=== PATIENT | male | born 1955 | race Caucasian/White ===

== ENCOUNTER 2024-11-23 12:51 | Emergency (ER) | payer BC ==
--- OUTSIDE RECORDS SUMMARY | 2024-11-23 12:55 | XMS REPORT | Continuity of Care Document ---
Author Name Unknown Address [address] [facility]. [address] Address [address] [facility]. 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 Role Phone IDRIS GOODRICH Attending Clinician Unavailable Leslie Attending Clinician Unavailable CHRISTY NOBLES Attending Clinician Unavailable Krystin Attending Clinician Unavailable FEDERICO FRAUSTO Attending Clinician Unavailable JULIET STERN Attending Clinician Unavailab Jolley Attending Clinician Unavailable BALJEET MANCUSO Attending Clinician Unavailable DIANDRA CERDA Attending Clinician Unavailable DELMY GARCIA Attending Clinician Ayala vailable Leslie Admitting Clinician Unavailable Krystin Admitting Clinician Unavailable Ivan Admitting Clinician Unavailable Payers Payer Name Policy Type Policy Number Effective Date Expirati on Date Source [place] [id number] 2021 00:00:00 [facility] 57 Problems Condition Name Condition Details Condition Category Status Onset Date Resolution Date Last Treatment Date Treating Clinician Comments Source Streptococ tony sore throat Streptococ tony Sore Throat Problem Active 2023-10 00:00: 00 [facility] Hyperlipid emia Hyperlipid emia Problem Active 2023-10 00:00: 00 [facility] Essential hypertensi on Essential Hypertensi on Problem Active 2023-10 00:00: 00 [facility] Acute pharyngiti s Acute Pharyngiti s Problem Active 2023-10 00:00: 00 [facility] Nasal congestion Nasal Congestion Problem Active 12-27 00:00: 00 [facility] COVID-19 Covid-19 Problem Active 3 00:00: 00 [facility] Rayray hematuria Rayray Hematuria Problem Active 18 00:00: 00 [facility] Acute bacterial bronchitis Acute Bacterial Bronchitis Problem Active 11-03 00:00: 00 [facility] Overweight Overweight Problem Active 11-03 00:00: 00 [facility] Allergies, Adverse Reactions, Alerts Allergy Name Allergy Type Status Severity Reaction(s) Onset Date Inactive Date Treating Clinician Comments Source Naproxen Allergy to substanc e Active Anaphylaxis [facility] Lipitor Allergy to substanc e Active [facility] Naprosyn Allergy to substanc e Active [facility] Social History Smoking Status Start Date Stop Date Source Never Smoker [facility] Former Smoker [facility] Medications Ordered Medication Name Filled Medication Name Start Date Stop Date Current Medication? Ordering Clinician Indication Dosage Frequency Signature (SIG) Comments Components Source aspirin 81 mg tablet,priscilla yed release Take 1 tablet every day by oral route. aspirin 81 mg tablet,priscilla yed release Take 1 tablet every day by oral route. No 1 Q1D aspirin 81 mg tablet,del ayed release Take 1 tablet every day by oral route. [facility] ezetimibe 10 mg tablet TAKE 1 TABLET BY MOUTH EVERY DAY ezetimibe 10 mg tablet TAKE 1 TABLET BY MOUTH EVERY DAY No ezetimibe 10 mg tablet TAKE 1 TABLET BY MOUTH EVERY DAY [facility] finasteride 5 mg tablet TAKE 1 TABLET BY MOUTH DAILY finasteride 5 mg tablet TAKE 1 TABLET BY MOUTH DAILY No finasterid e 5 mg tablet TAKE 1 TABLET BY MOUTH DAILY [facility] metoprolol succinate ER 50 mg tablet,exte nded release 24 hr TAKE 1 TABLET BY MOUTH DAILY metoprolol succinate ER 50 mg tablet,exte nded release 24 hr TAKE 1 TABLET BY MOUTH DAILY No metoprolol succinate ER 50 mg tablet,ext ended release 24 hr TAKE 1 TABLET BY MOUTH DAILY [facility] tamsulosin 0.4 mg capsule TAKE 1 CAPSULE BY MOUTH DAILY tamsulosin 0.4 mg capsule TAKE 1 CAPSULE BY MOUTH DAILY No tamsulosin 0.4 mg capsule TAKE 1 CAPSULE BY MOUTH DAILY [facility] azithromyci n 250 mg tablet TAKE 2 TABLETS (500 MG) BY ORAL ROUTE ONCE DAILY FOR 1 DAY THEN 1 TABLET (250 MG) BY ORAL ROUTE ONCE DAILY FOR 4 DAYS azithromyci n 250 mg tablet TAKE 2 TABLETS (500 MG) BY ORAL ROUTE ONCE DAILY FOR 1 DAY THEN 1 TABLET (250 MG) BY ORAL ROUTE ONCE DAILY FOR 4 DAYS No azithromyc in 250 mg tablet TAKE 2 TABLETS (500 MG) BY ORAL ROUTE ONCE DAILY FOR 1 DAY THEN 1 TABLET (250 MG) BY ORAL ROUTE ONCE DAILY FOR 4 DAYS [facility] Aspir-Low 81 mg tablet,priscilla yed release Take 1 tablet every day by oral route. Aspir-Low 81 mg tablet,priscilla yed release Take 1 tablet every day by oral route. No 1 Q1D Aspir-Low 81 mg tablet,del ayed release Take 1 tablet every day by oral route. [facility] ezetimibe 10 mg tablet TAKE 1 TABLET BY MOUTH EVERY DAY ezetimibe 10 mg tablet TAKE 1 TABLET BY MOUTH EVERY DAY No ezetimibe 10 mg tablet TAKE 1 TABLET BY MOUTH EVERY DAY [facility] metoprolol succinate ER 50 mg tablet,exte nded release 24 hr TAKE 1 TABLET BY MOUTH DAILY metoprolol succinate ER 50 mg tablet,exte nded release 24 hr TAKE 1 TABLET BY MOUTH DAILY No metoprolol succinate ER 50 mg tablet,ext ended release 24 hr TAKE 1 TABLET BY MOUTH DAILY [facility] Paxlovid 300 mg (150 mg x 2)-100 mg tablets in a dose pack TK 2 NIRMATRELVI R TS AND 1 RITONAVIR T TOGETHER PO BF 5 Paxlovid 300 mg (150 mg x 2)-100 mg tablets in a dose pack TK 2 NIRMATRELVI R TS AND 1 RITONAVIR T TOGETHER PO BF 5 No Paxlovid 300 mg (150 mg x 2)-100 mg tablets in a dose pack TK 2 NIRMATRELV IR TS AND 1 RITONAVIR T TOGETHER PO BF 5 [facility] dicyclomine 20 mg tablet Take 1 tablet 4 times a day by oral route as needed, for Abdominal cramping. dicyclomine 20 mg tablet Take 1 tablet 4 times a day by oral route as needed, for Abdominal cramping. No 1 QID dicyclomin e 20 mg tablet Take 1 tablet 4 times a day by oral route as needed, for Abdominal cramping. [facility] Immunizations Ordered Immunization Name Filled Immunization Name Date Status Comments Source Influenza vaccine, quadrivalent, adjuvanted Influenza vaccine, quadrivalent, adjuvanted Unknown Completed [facility] influenza, injectable, quadrivalent, preservative free influenza, injectable, quadrivalent, preservative free Unknown Completed [facility] Tdap Tdap Unknown Completed [facility] influenza, injectable, quadrivalent influenza, injectable, quadrivalent Unknown Completed [facility] COVID-19, mRNA, LNP-S, PF, 100 mcg/0.5 mL dose (Moderna) - ML COVID-19, mRNA, LNP-S, PF, 100 mcg/0.5 mL dose (Moderna) - ML Unknown Completed [facility] influenza, unspecified formulation influenza, unspecified formulation Unknown Completed [facility] Vital Signs Vital Name Observation Time Observation Value Comments S ource BP Systolic 2024-09-12 00:00:00 137 mm[Hg] Brian cama [facility] Height 2024-09-12 00:00:00 71 [in_i] [facility] BMI (Body Mass Index) 2024-09-12 00:00:00 27.6 kg/m2 [place] [facility] Body Weight 2024-09-12 00:00:00 3168 [oz_av] [facility] BP Diastolic 2024-09-12 00:00:00 89 mm[Hg] [facility] Weight 2024-09-10 00:00:00 3200 [oz_av] [facility] BMI (Body Mass Index) 2024-09-10 00:00:00 27.9 kg/m2 [place] [facility] BP Diastolic 2024-09-10 00:00:00 97 mm[Hg] [place] [facility] BP Systolic 2024-09-10 00:00:00 162 mm[Hg] [facility] Height 2024-09-10 00:00:00 71 [in_i] [place] [facility] Height 2024-05-05 00:00:00 69.2 [in_i] [facility] BP Diastolic 2024-05-05 00:00:00 88 mm[Hg] [facility] BP Systolic 2024-05-05 00:00:00 140 mm[Hg] [facility] BMI (Body Mass Index) 2024-05-05 00:00:00 28.5 kg/m2 [facility] Body Weight 2024-05-05 00:00:00 3104 [oz_av] [facility] BP Systolic 2024-02-24 00:00:00 155 mm[Hg] [facility] Height 2024-02-24 00:00:00 69.2 [in_i] [facility] BP Diastolic 2024-02-24 00:00:00 98 mm[Hg] [facility] Body Weight 2024-02-24 00:00:00 3104 [oz_av] [facility] BMI (Body Mass Index) 2024-02-24 00:00:00 28.5 kg/m2 [facility] Body Weight 2023-12-28 00:00:00 3152 [oz_av] [facility] BP Systolic 2023-12-28 00:00:00 135 mm[Hg] [facility] Height 2023-12-28 00:00:00 69.2 [in_i] [facility] BMI (Body Mass Index) 2023-12-28 00:00:00 28.9 kg/m2 [facility] BP Diastolic 2023-12-28 00:00:00 90 mm[Hg] [facility] BP Systolic 2023-07-22 00:00:00 139 mm[Hg] [facility] BMI (Body Mass Index) 2023-07-22 00:00:00 28.5 kg/m2 [facility] BP Diastolic 2023-07-22 00:00:00 88 mm[Hg] [facility] Height 2023-07-22 00:00:00 69.2 [in_i] [facility] Body Weight 2023-07-22 00:00:00 3104 [oz_av] [facility] BP Diastolic 2022-11-26 00:00:00 93 mm[Hg] [facility] Height 2022-11-26 00:00:00 69.2 [in_i] [facility] BMI (Body Mass Index) 2022-11-26 00:00:00 27.9 kg/m2 [facility] BP Systolic 2022-11-26 00:00:00 145 mm[Hg] [facility] Body Weight 2022-11-26 00:00:00 3040 [oz_av] [facility] BP Diastolic 2022-11-24 00:00:00 100 mm[Hg] [facility] Height 2022-11-24 00:00:00 69.2 [in_i] [facility] BMI (Body Mass Index) 2022-11-24 00:00:00 27.9 kg/m2 [facility] BP Systolic 2022-11-24 00:00:00 154 mm[Hg] [facility] Body Weight 2022-11-24 00:00:00 3040 [oz_av] [facility] BP Diastolic 2022-11-03 00:00:00 93 mm[Hg] [facility] Height 2022-11-03 00:00:00 69.2 [in_i] [facility] BMI (Body Mass Index) 2022-11-03 00:00:00 28 kg/m2 [facility] BP Systolic 2022-11-03 00:00:00 134 mm[Hg] [facility] Body Weight 2022-11-03 00:00:00 3047 [oz_av] [facility] Height 2022-10-17 00:00:00 69.2 [in_i] [facility] BP Diastolic 2022-08-27 00:00:00 97 mm[Hg] [facility] Height 2022-08-27 00:00:00 69.2 [in_i] [facility] BMI (Body Mass Index) 2022-08-27 00:00:00 28.9 kg/m2 [facility] BP Systolic 2022-08-27 00:00:00 147 mm[Hg] [facility] Body Weight 2022-08-27 00:00:00 3152 [oz_av] [facility] BP Systolic 2022-08-02 00:00:00 128 mm[Hg] [facility] Body Weight 2022-08-02 00:00:00 3184 [oz_av] [facility] BP Diastolic 2022-08-02 00:00:00 85 mm[Hg] [facility] Height 2022-08-02 00:00:00 71 [in_i] [facility] BMI (Body Mass Index) 2022-08-02 00:00:00 27.8 kg/m2 [facility] BP Diastolic 2021-08-24 00:00:00 89 mm[Hg] [facility] Height 2021-08-24 00:00:00 71 [in_i] [facility] BMI (Body Mass Index) 2021-08-24 00:00:00 26.2 kg/m2 [facility] BP Systolic 2021-08-24 00:00:00 143 mm[Hg] [facility] Body Weight 2021-08-24 00:00:00 3011 [oz_av] [facility] BP Diastolic 2021-07-31 00:00:00 85 mm[Hg] [facility] Height 2021-07-31 00:00:00 71 [in_i] [facility] BMI (Body Mass Index) 2021-07-31 00:00:00 26.2 kg/m2 [facility] BP Systolic 2021-07-31 00:00:00 121 mm[Hg] [facility] Body Weight 2021-07-31 00:00:00 3000 [oz_av] [facility] BP Diastolic 2020-12-16 00:00:00 86 mm[Hg] [facility] Height 2020-12-16 00:00:00 71 [in_i] [facility] BMI (Body Mass Index) 2020-12-16 00:00:00 26.4 kg/m2 [facility] BP Systolic 2020-12-16 00:00:00 131 mm[Hg] [facility] Body Weight 2020-12-16 00:00:00 3025.6 [oz_av] [facility] BP Diastolic 2019-12-16 00:00:00 82 mm[Hg] [facility] Height 2019-12-16 00:00:00 71 [in_i] [facility] BMI (Body Mass Index) 2019-12-16 00:00:00 28 kg/m2 [facility] BP Systolic 2019-12-16 00:00:00 133 mm[Hg] [facility] Body Weight 2019-12-16 00:00:00 3207 [oz_av] [facility] Procedures Procedure Date / Time Performed Performing Clinicia n Source XR, chest, 2 view 2023-07-22 00:00:00 [facility] Colonoscopy Thru Stoma Spx 2008-10-07 00:00:00 [facility] Encounters Start Date/Time End Date/Time Encounter Type Admission Type Attending [facility] Care Facility Care Department Encounter ID Source 2024-09-12 00:00:00 2024-09-12 00:00:00 Alisson Sotelo, UTILIZATION SPECIALIST: Herman Broderick, [place] [address] , [facility]. [facility] Primary Expansion [phone] [facility] 2024-09-10 00:00:00 2024-09-10 00:00:00 Jaqueline Bundy, UTILIZATION SPECIALIST: [place] [address] , Ph. [facility] Expansion [id number] [facility] 2024-05-05 00:00:00 2024-05-05 00:00:00 Christy Nobles, UTILIZATION SPECIALIST: [address], [address], [place] [address] , Ph. [facility] [id number] [facility] 2024-02-24 00:00:00 2024-02-24 00:00:00 Christy Nobles, UTILIZATION SPECIALIST: [address], [address], [place] [address] , Ph. [facility] [phone]- [phone] [facility] 2024-01-03 08:01:00 2024-01-03 08:01:00 Outpatient IDRIS RANDLE [facility] [id number] [facility] 2023-12-28 00:00:00 2023-12-28 00:00:00 Tameka Salguero, UTILIZATION SPECIALIST: [address], [address], [place] [address] , Ph. Jose M_Ricardo [facility] 323 [facility] 2023-08-14 08:15:00 2023-08-14 08:15:00 Outpatient CHRISTY CARRASQUILLO [facility] [id number] [facility] 2023-07-22 00:00:00 2023-07-22 00:00:00 [id number] [facility] 2023-07-22 00:00:00 2023-07-22 00:00:00 [facility] [id number] [facility] 2023-07-22 00:00:00 2023-07-22 00:00:00 Christy Nobles, UTILIZATION SPECIALIST: [address], [address], [place] [address] , Ph. [facility] [id number] [facility] 2023-01-30 14:12:00 2023-01-30 14:12:00 Outpatient NICCI FEDERICO FRAUSTO [facility] [id number] [facility] 2022-12-04 08:14:00 2022-12-04 08:14:00 Outpatient NICCI NOBLESCHRISTY [facility] [id number] [facility] 2022-11-26 00:00:00 2022-11-26 00:00:00 Outpatient Evans_S [facility] [id number] [facility] 2022-11-26 00:00:00 2022-11-26 00:00:00 Christy Nobles, UTILIZATION SPECIALIST: [address], [place] [address] , Ph. [facility] [id number] [facility] 2022-11-24 10:27:00 2022-11-24 10:27:00 Outpatient JULIET ROMO [facility] [id number] [facility] 2022-11-24 00:00:00 2022-11-24 00:00:00 Outpatient Evans_S [facility]G [facility] [id number] [facility] 2022-11-24 00:00:00 2022-11-24 00:00:00 HYUN AdrianC: [address], [place] [address] , Ph. [facility] [id number] [facility] 2022-11-23 00:00:00 2022-11-23 00:00:00 Outpatient Shield [facility] [id number] [facility] 2022-11-03 00:00:00 2022-11-03 00:00:00 Outpatient Shield [facility] [id number] [facility] 2022-11-03 00:00:00 2022-11-03 00:00:00 Outpatient Shield [facility] [id number] [facility] 2022-11-03 00:00:00 2022-11-03 00:00:00 Tameka Salguero, UTILIZATION SPECIALIST: [address] [address] , Ph. [facility] [id number] [facility] 2022-10-17 00:00:00 2022-10-17 00:00:00 Outpatient Shield [facility] [id number] [facility] 2022-10-17 00:00:00 2022-10-17 00:00:00 Outpatient Shield [facility]G [facility] [id number] [facility] 2022-10-17 00:00:00 2022-10-17 00:00:00 Christy Nobles, UTILIZATION SPECIALIST: [address] [address] , Ph. [facility] [id number] [facility] 2022-09-18 14:20:00 2022-09-18 14:20:00 Outpatient CHRISTY CARRASQUILLO [facility] [id number] [facility] 2022-08-27 14:44:00 2022-08-27 14:44:00 Outpatient CHRISTY CARRASQUILLO [facility] [id number] [facility] 2022-08-27 00:00:00 2022-08-27 00:00:00 Outpatient Shield [facility] MM[facility] [id number] [facility] 2022-08-27 00:00:00 2022-08-27 00:00:00 Outpatient Shield [facility] [id number] [facility] 2022-08-27 00:00:00 2022-08-27 00:00:00 Christy Nobles, UTILIZATION SPECIALIST: [address], [place] [address] , Ph. [facility] [id number] [facility] 2022-08-02 00:00:00 2022-08-02 00:00:00 Outpatient Shield [facility] MMG [id number] [facility] 2022-08-02 00:00:00 2022-08-02 00:00:00 Christy Nobles, UTILIZATION SPECIALIST: [address], [place] [address] , Ph. [facility] [id number] [facility] 2021-08-24 00:00:00 2021-08-24 00:00:00 Outpatient Shield [facility] [id number] [facility] 2021-08-24 00:00:00 2021-08-24 00:00:00 Christy Nobles, UTILIZATION SPECIALIST: [address], [place] [address] , Ph. [facility] [id number] [facility] 2021-08-23 05:49:00 2021-08-23 05:49:00 Outpatient Shield [facility] [id number] [facility] 2021-08-04 06:11:00 2021-08-04 06:11:00 Outpatient Hawkins_M [facility] [id number] [facility] 2021-07-31 10:57:00 2021-07-31 10:57:00 Outpatient NICCI CHRISTY NOBLES [facility] [id number] [facility] 2021-07-31 07:05:00 2021-07-31 07:05:00 Outpatient Hawkins_M [facility] [id number] [facility] 2021-07-31 00:00:00 2021-07-31 00:00:00 Christy Nobles, UTILIZATION SPECIALIST: [address], [place] [address] , Ph. [facility] [id number] [facility] 2020-12-30 15:42:00 2020-12-30 15:42:00 Outpatient IDRIS RANDLE [facility] [id number] [facility] 2020-12-22 08:05:00 2020-12-22 08:05:00 Outpatient IDRIS RANDLE [facility] [id number] [facility] 2020-12-16 10:38:00 2020-12-16 10:38:00 Outpatient Hawkins_M MMG MM [id number] [facility] 2020-12-16 10:38:00 2020-12-16 10:38:00 Outpatient Hawkins_M MMG MM [id number] [facility] 2020-12-16 00:00:00 2020-12-16 00:00:00 Tameka Salguero, UTILIZATION SPECIALIST: [address], [place] [address] , Ph. [facility] [id number] [facility] 2020-12-15 02:13:00 2020-12-15 02:13:00 Outpatient Hawkins_M MMG MM[facility] [id number] [facility] 2020-08-24 02:28:00 2020-08-24 02:28:00 Outpatient Shield [facility] [id number] [facility] 2020-07-04 08:03:00 2020-07-04 08:03:00 Outpatient IDRIS RANDLE [facility] [id number] [facility] 2019-12-16 09:24:00 2019-12-16 09:24:00 Outpatient Shield [facility] [id number] [facility] 2019-12-16 00:00:00 2019-12-16 00:00:00 Christy Nobles, UTILIZATION SPECIALIST: [address] [facility] [address] [address] , Ph. [facility] [place] [facility] [id number] [facility] 2018-09-09 11:50:00 2018-09-09 11:50:00 Outpatient CHRISTY CARRASQUILLO [facility] [id number] [facility] 2014-05-12 09:25:00 2014-05-12 09:25:00 Outpatient IDRIS RANDLE [facility] [id number] [facility] 2013-11-10 11:46:00 2013-11-10 11:46:00 Outpatient BALJEET CR [facility] [id number] [facility] 2011-09-06 08:01:00 2011-09-06 08:01:00 Outpatient IDRIS RANDLE [facility] [id number] [facility] 2011-08-10 07:31:00 2011-08-10 07:31:00 Outpatient IDRIS RANDLE [facility] [id number] [facility] 2009-08-12 07:27:00 2009-08-12 07:27:00 Outpatient DIANDRA LIMON [facility] [id number] [facility] 2009-03-08 08:04:00 2009-03-08 08:04:00 Outpatient IDRIS RANDLE [facility] [id number] [facility] 2007-07-07 08:01:00 2007-07-07 08:01:00 Outpatient IDRIS RANDLE [facility] [id number] [facility] 2003-08-24 08:16:00 2003-08-24 08:16:00 Outpatient IDRIS RANDLE [facility] [id number] [facility] 2001-01-14 03:43:00 2001-01-14 06:15:00 Emergency ER DELMY GARCIA [facility] [id number] [facility] Results Test Description Test Time Test Comments Results Result Co mments Source [facility] macro (dipstick) panel - [id number] 15:06:00* Test Item Value Reference Range Interpretation Comme nts Leukocytes (test code = Leukocytes) Negative Nitrite (test code = Nitrite) negative Urobilinogen (test code = Urobilinogen) 1 Protein (test code = Protein) Negative pH (test code = pH) 7.0 Blood (test code = Blood) Negative Specific Alma (test code = Specific [place]ma) 1.020 Ketone (test code = Ketone) Negative Bilirubin (test code = Bilirubin) Negative Glucose (test code = Glucose) Negative Appearance (test code = Appearance) Turbid Color (test code = Color) Dark Yellow [facility] A and B and SARS-CoV+SARS-CoV-2 (COVID- 19) Ag panel - Upper respiratory specimen byRapid [id number] 13:38:02 * Test Item Value Reference Range Interpretation Comme nts RAPID SARS COV (test code = RAPID SARS COV) positive RAPID FLU A (test code = RAP ID FLU A) negative RAPID FLU B (test code = RAP ID FLU B) negative [facility] pres id [id number] 10:58:00* Test Item Value Reference Range Interpretation Comme nts culture,urine (test code = culture,urine) specimen has been received in lab and IS in progress. [facility]portUrinalysis macro (dipstick) panel - [id number] 09:47:00* Test Item Value Reference Range Interpretation Comme nts Leukocytes (test code = Leukocytes) Negative Nitrite (test code = Nitrite) negative Urobilinogen (test code = Urobilinogen) .2 Protein (test code = Protein) Negative pH (test code = pH) 6.5 Blood (test code = Blood) Large Specific [place] (test code = Specific [place]) 1.020 Ketone (test code = Ketone) Negative Bilirubin (test code = Bilirubin) Negative Glucose (test code = Glucose) Negative Appearance (test code = Appearance) Cloudy Color (test code = Color) Dark Yellow [facility]Non[facility] colorectal cancer DNA and occult blood screening [Presence] in [id number] 19:00:00* Test Item Value Reference Range Interpretation Comme nts cologuard result reportable (test code = cologuard result reportable) negative negative [facility] metabolic 2000 panel - Serum or [id number] 15:59:00* Test Item Value Reference Range Interpretation Comme nts glucose (test code = glucose) 101 mg/dL 82-115 blood urea nitrogen (test co de = blood urea nitrogen) 14 mg/dL 8-23 osmolality calculated,serum (test code = osmolality calculated,serum) 276 mOsm/kg 280-300 L creatinine (test code = creatinine) 1.03 mg/dL 0.70-1.20 glomerular filtration rate ( test code = glomerular filtration rate) > 60.00 BUN/creatinine ratio (test c ode = BUN/creatinine ratio) 13.6 12.0-20.0 sodium level (test code = so dium level) 138 mmol/L 135-145 potassium level (test code = potassium level) 4.3 mmol/L 3.5-5.2 chloride level (test code = chloride level) 101 mmol/L 98-108 CO2 (test code = CO2) 28 mmol/L 21-32 anion gap (test code = anion gap) 13.3 mEq/L 12.0-20.0 calcium level (test code = calcium level) 9.3 mg/dL 8.8-10.2 [facility]hepatitis C virus [id number] 08:15:00* Test Item Value Reference Range Interpretation Comme nts hepatitis C virus antibody (test code = hepatitis C virus antibody) 0.2 s/co ratio 0.0-0.9 [facility]thyroid stimulating hormone [id number] 17:39:00* Test Item Value Reference Range Interpretation Comme nts thyroid stimulating hormone L (test code = thyroid stimulating hormone L) 1.21 uIU/mL 0.36-3.74 [facility]total prostate [id number] 17:28:00* Test Item Value Reference Range Interpretation Comme nts total prostate screening (te st code = total prostate screening) 3.35 NG/mL 0.0-4.00 [facility]lipid [id number] 17:23:00* Test Item Value Reference Range Interpretation Comme nts cholesterol level (test code = cholesterol level) 213 mg/dL 150-200 H triglycerides level (test co de = triglycerides level) 160 mg/dL <150 H HDL cholesterol (test code = HDL cholesterol) 46 mg/dL >55 L Cholesterol in LDL [Mass/vol ume] in Serum or Plasma (test code = 2089-1) 146 mg/dL <100 H cholesterol risk ratio (test code = cholesterol risk ratio) 4.630 [facility]hemoglobin [id number] 17:18:00* Test Item Value Reference Range Interpretation Comme nts Hemoglobin A1c/Hemoglobin.to [place] in Blood (test code = 4548-4) 6.0 % 4.0-6.0 [id number] 17:09:00* Test Item Value Reference Range Interpretation Comme nts color, urine (test code = color, urine) light yellow appearance, urine (test code = appearance, urine) clear clear urine glucose (test code = urine glucose) negative negative bilirubin, urine (test code = bilirubin, urine) negative negative ketone, urine (test code = ketone, urine) negative negative specific gravity,urine (test code = specific gravity,urine) 1.018 1.003-1.030 blood urine (test code = blo od urine) negative negative pH,urine (test code = pH,urine) 6.000 5-9 protein urine (UA) (test cod e = protein urine (UA)) negative negative urobilinogen, urine (test co de = urobilinogen, urine) normal 0.2-1.0 nitrate, urine (test code = nitrate, urine) negative negative urine leukocyte esterase (te st code = urine leukocyte esterase) negative negative RBC, urine (test code = RBC, urine) 1-5 0-5 WBC, urine (test code = WBC, urine) <1 0-5 epithelial cell (test code = epithelial cell) <1 0-5 bacteria, urine (test code = bacteria, urine) none detected none detect casts,urine (test code = casts,urine) none detected none detect urine culture added? (test c ode = urine culture added?) no [facility]portPSA, serum or [id number] 00:00:00* Test Item Value Reference Range Interpretation Comme nts PSA, serum or plasma (test c ode = PSA, serum or plasma) 2.79 [facility]portHemoglobin A1c [Mass/volume] in [id number] 00:00:00 * Test Item Value Reference Range Interpretation Comme nts Hemoglobin A1c [Mass/volume] in Blood (test code = 40703-4) 5.7 % 4.0-6.0 [facility]Comprehensive metabolic 2000 panel - Serum or Plasma 2021-07-31 00:00:00* Test Item Value Reference Range Interpretation Comme nts Glucose [Mass/volume] in Ser um or Plasma (test code = 2345-7) 107 mg/dL 82-115 Urea nitrogen [Mass/volume] in Serum or Plasma (test code = 3094-0) 19 mg/dL 8-23 osmolality calculated,serum (test code = osmolality calculated,serum) 282 mOsm/kg 280-300 creatinine (test code = creatinine) 1.0 mg/dL 0.70-1.20 glomerular filtration rate ( test code = glomerular filtration rate) >60.00 Urea nitrogen/Creatinine [Ma ss Ratio] in Serum or Plasma (test code = 3097-3) 19.0 12-20 sodium level (test code = so dium level) 140 mmol/L 135-145 potassium level (test code = potassium level) 4.4 mmol/L 3.5-5.2 chloride level (test code = chloride level) 102 mmol/L 98-108 CO2 (test code = CO2) 27 mmol/L 21-32 anion gap (test code = anion gap) 15.4 mEq/L 12-20 calcium level (test code = calcium level) 9.0 mg/dL 8.8-10.2 total protein (test code = t otal protein) 6.9 g/dL 6.6-8.7 albumin (test code = albumin) 4.2 g/dL 3.5-5.2 globulin (test code = globulin) 2.7 gm/dL A/G ratio (test code = A/G ratio) 1.6 >1.0 bilirubin,total (test code = bilirubin,total) 0.7 mg/dL 0.0-1.2 AST/SGOT (test code = AST/SGOT) 27 U/L 15-40 Alanine aminotransferase [Enzymatic activity/volume] in Serum or Plasma (test code = 1742-6) 35 U/L 0-41 Alkaline phosphatase [Enzyma tic activity/volume] in Serum or Plasma (test code = 6768-6) 72 U/L 40-130 [facility]
--- NOTE | 2024-11-23 13:47 | RAD REPORT ---
EXAMINATION: CT ABDOMEN AND PELVIS WITH CONTRAST CLINICAL INDICATION: Hematuria TECHNIQUE: CT abdomen and pelvis was performed, after the administration of 100 cc Isovue-300.. [place] and coronal reconstructions were obtained. One or more of the following dose reduction techniques were used: Automated exposure control, adjustment of the mA and kV according to patient si ze, and iterative reconstruction. Unless otherwise specified, incidental findings do not require dedicated imaging follow-up. [id number]. Oral contrast was not given which limits evaluation of bowel and appendix. COMPARISON: .None FINDINGS: 2.7 cm hepatic cyst. Tiny mass right kidney too small to characterize but probably a cyst. Tiny calculus right kidney. No hydronephrosis. Mild apical thinning left kidney. No mass. No hydronephrosis. Prostate gland mildly enlarged calcification. It abuts the base of the bladder. The spleen, pancreas and adrenals are unremarkable. Normal appendix. Spondylosis distal lumbar spine.. Very small bladder diverticulum. Small to moderate bilateral inguinal hernias containing fat Diverticula stem from colon without visualization of diverticulitis Tiny umbilical hernia : IMPRESSION: Tiny nonobstructing right renal calculus
[2024-11-23] MEDS ORDERED: NA CHLORIDE 0.9% 1,000 ML ONE (13:53)
[2024-11-23 13:54] LABS: Absolute Eosinophils 0.1 K/uL (0-0.5); Absolute Lymphocytes (CBC) 2.4 K/uL (0.7-4.9); Absolute Monocytes 0.6 K/uL (0.1-1.3); Absolute Neutrophil 5.6 K/uL (1.8-8.0); Basophils % 0.4 % (0-1.3); Eosinophils % 1.4 % (0-4.4); Hematocrit 43.3 % (39.6-49.0); Lymphocytes % 27.4 % (15.3-44.8); MCH 30.7 pg (27.0-35.0); MCHC 34.6 g/dL (32.0-36.0); MCV 88.6 fL (80-100); Monocytes % 6.8 % (3.3-12.3); Nucleated Red Blood Cells % 0.1 % (0-0); Platelets 197 thou/uL (152-406); RBC Red Blood Cell Count 4.89 M/uL (4.33-5.43); Red Cell Distribution Width 13.7 % (12.1-15.2)
[2024-11-23 14:07] LABS: Albumin 3.6 g/dL (3.4-5.0); Albumin/Globulin Ratio 1.1 (1.1-1.8); Anion Gap 4.9 mEq/L (5.0-15.0); Bilirubin Total 0.7 mg/dL (0.2-1.0); Globulin 3.2 g/dL (2.3-3.5); Potassium 3.9 mEq/L (3.5-5.1); Protein, Total 6.8 g/dL (6.4-8.2)
[2024-11-23 14:19] LABS: Sqamous Epithelial None Seen /HPF (None Seen); Urine Bacteria None Seen /HPF (<20); Urine Culture Reflex Order NOT NEEDED; Urine Micro Reflex YN NO BILL MICROSCOPIC; Urine RBC >50 /HPF (None Seen)
--- NOTE | 2024-11-23 15:54 | EDPHYS ---
Physician Documentation [facility] Name: Wanda Elizabeth Age: 69 yrs Sex: Male : 1955 Arrival Date: 11/23/2024 Time: 12:51 Bed 18 Private MD: ED Physician Caryl Ramirez HPI: 11/23 13:36 This 69 yrs old Male presents to ER via Ambulatory with complaints of Urinary Problem. kb 13:37 Pt is a 69 year old male who presents for hematuria that started yesterday and has kb gotten worse. States he has had this happen before, was seen by urologist and a cystoscopy was done but didn't show anything. Denies any pain, fever, dysuria. . Historical: - Allergies: 13:07 Naprosyn; ko1 - PMHx: 13:07 History of urinary tract infection; ko1 - Immunization history:: Adult Immunizations unknown. - Infectious Disease History:: Denies. - Social history:: Smoking status: Patient/guardian denies using tobacco, but has a distant history of tobacco abuse. ROS: 13:36 Constitutional: As per HPI kb Exam: 13:36 Constitutional: This is a well developed, well nourished patient who is awake, alert, kb and in no acute distress. Head/Face: Normocephalic, atraumatic. ENT: Moist Mucous membranes Cardiovascular: Regular rate Respiratory: Respirations even and unlabored. No increased work of breathing. Talking in full sentences Abdomen/GI: Soft, non-tender. No distention Skin: Warm, dry with normal turgor. Normal color. MS/ Extremity: Pulses equal, no cyanosis. Neurovascular intact. Full, normal range of motion. Neuro: Awake and alert, GCS 15, oriented to person, place, time, and situation. Vital Signs: 13:04 BP 166 / 102; Pulse 90; Resp 16; Temp 97; Pulse Ox 100% ; ko1 14:51 BP 155 / 90; Pulse 70; Resp 16; Pulse Ox 96% on R/A; Pain 1/10; ll1 14:51 Pain Scale: Adult ll1 MDM: 12:53 Medical Screening Exam initiated kb 15:52 Differential diagnosis: UTI, urinary retention, prostatitis, urethritis. Data reviewed: kb vital signs, nurses notes. Historians other than the Patient: Spouse/Significant Other: . Counseling: I had a detailed discussion with the patient and/or guardian regarding the historical points, exam findings, and any diagnostic results supporting the discharge/admit diagnosis, lab results, radiology results, the need for outpatient follow up, a urologist, to return to the emergency department if symptoms worsen or persist or if there are any questions or concerns that arise at home. ED course: Discussed pickens catheter and bladder irrigation if urine grossly bloody with pt and spouse. Pt urinated clear, light tea colored urine. States he has no difficulty urinating. Used shared decision making and elected not to insert pickens at this time. Pt educated on strict return precautions. Pt will follow up with Dr Tejada. 11/23 13:07 Order name: CBC with Diff; Complete Time: 13:56 kb 11/23 13:07 Order name: CMP; Complete Time: 14:08 kb 11/23 14:00 Order name: CREATININE WHOLE BLOOD; Complete Time: 14:08 EDMS 11/23 14:06 Order name: Urine Microscopic Only; Complete Time: 14:19 EDMS 11/23 13:07 Order name: CT Abd/Pelvis - IV Contrast Only; Complete Time: 13:51 kb 11/23 13:07 Order name: IV Saline Lock; Complete Time: 13:52 kb 11/23 13:07 Order name: Labs collected and sent; Complete Time: 13:52 kb Administered Medications: 14:03 Drug: NS 0.9% IV 1000 ml IV at 1 bolus Per protocol; to be given as a bolus over 60 ss minutes Route: IV; Rate: 1 bolus; Site: left antecubital; 16:06 Follow up: Response: No adverse reaction; IV Status: Completed infusion; IV Intake: ll1 1000ml Disposition: 19:49 Co-signature as Attending Physician, Caryl Ramirez MD I agree with the assessment and gb1 plan of care. I reviewed the patient's care provided by the Advanced Practice Provider and agree with the diagnosis and treatment plan. Disposition Summary: 11/23/24 15:54 Discharge Ordered Notes: Location: Home kb Condition: Stable kb Diagnosis - Hematuria, unspecified kb Followup: kb - With: Emergency Department - When: As needed - Reason: Worsening of condition Followup: kb - With: Private Physician - When: 2 - 3 days - Reason: Recheck today's complaints, Continuance of care, Re-evaluation by your physician Discharge Instructions: - Discharge Summary Sheet kb - Hematuria, Adult kb Forms: - Medication Reconciliation Form kb - Antibiotic Education kb - Prescription Opioid Use kb - Patient Portal Instructions kb - Leadership Thank You Letter kb Signatures: Dispatcher [employer] EDMS DallinNuris, MIDDLEWARE ADMINISTRATOR-C MIDDLEWARE ADMINISTRATOR-Amanda Carney, RN RN ss Kath Lawson RN RN ko1 Caryl Ramirez MD MD gb1 Phi Wright RN ll1 Corrections: (The following items were deleted from the chart) 14:06 13:07 Urinalysis+U.LAB.BRZ ordered. EDKY EDKY
--- NOTE | 2024-11-23 15:54 | ER ---
Nurse's Notes [facility] Name: Wanda Elizabeth Age: 69 yrs Sex: Male : 1955 Arrival Date: 11/23/2024 Time: 12:51 Bed 18 Private MD: Diagnosis: Hematuria, unspecified Presentation: 11/23 13:04 Chief complaint: Patient states: blood in urine started yesterday, worse today. ko1 Coronavirus screen: At this time, the client does not indicate any symptoms associated with coronavirus-19. Ebola Screen: No symptoms or risks identified at this time. Initial Sepsis Screen: Does the patient meet any 2 criteria? No. Patient's initial sepsis screen is negative. Does the patient have a suspected source of infection? No. Patient's initial sepsis screen is negative. Risk Assessment: Do you want to hurt yourself or someone else? Patient reports no desire to harm self or others. Onset of symptoms is unknown. 13:04 Method Of Arrival: Ambulatory ko1 13:04 Acuity: RACHANA 3 ko1 Triage Assessment: 13:07 General: Appears in no apparent distress. Behavior is calm, cooperative, appropriate ko1 for age. Pain: Denies pain. Historical: - Allergies: 13:07 Naprosyn; ko1 - PMHx: 13:07 History of urinary tract infection; ko1 - Immunization history:: Adult Immunizations unknown. - Infectious Disease History:: Denies. - Social history:: Smoking status: Patient/guardian denies using tobacco, but has a distant history of tobacco abuse. Screenin:51 [facility] ED Fall Risk Assessment (Adult) History of falling in the last 3 months, ll1 including since admission No falls in past 3 months (0 pts) Confusion or Disorientation No (0 pts) Intoxicated or Sedated No (0 pts) Impaired Gait No (0 pts) Mobility Assist Device Used No (0 pt) Altered Elimination No (0 pt) Score/Fall Risk Level 0 - 2 = Low Risk Maintained a safe environment, Hourly rounding (assess needs \T\ fall precautionary measures) done. Abuse screen: Denies threats or abuse. Nutritional screening: No deficits noted. Tuberculosis screening: No symptoms or risk factors identified. Assessment: 14:51 General: Appears in no apparent distress. Behavior is calm, cooperative, appropriate ll1 for age. Pain: Denies pain. : Reports blood in urine. 16:06 Reassessment: No changes from previously documented assessment. Patient and/or family ll1 updated on plan of care and expected duration. Pain level reassessed. Patient is alert, oriented x 3, equal unlabored respirations, skin warm/dry/pink. Patient states symptoms have improved. Vital Signs: 13:04 BP 166 / 102; Pulse 90; Resp 16; Temp 97; Pulse Ox 100% ; ko1 14:51 BP 155 / 90; Pulse 70; Resp 16; Pulse Ox 96% on R/A; Pain 1/10; ll1 14:51 Pain Scale: Adult ll1 ED Course: 12:53 Patient arrived in ED. mr 12:53 Nuris Zamarripa, GWEN [facility]. kb 12:53 Caryl Ramirez MD is Attending Physician. kb 13:07 Triage completed. ko1 13:07 Arm band placed on right wrist. Patient placed in waiting room, Patient notified of ko1 wait time. 13:34 CT Abd/Pelvis - IV Contrast Only In Process Unspecified. EDMS 13:52 Inserted saline lock: 22 gauge in left antecubital area, using aseptic technique. ss ,using aseptic technique. Insertion by Adriana, FREDERICK Blood collected. Flushed with 10 mL NS. 13:54 CMP Sent. ss 13:54 CBC with Diff Sent. ss 14:52 Patient has correct armband on for positive identification. Bed in low position. ll1 Provided Education on: ER procedures and process. Client placed on continuous cardiac and pulse oximetry monitoring. NIBP monitoring applied. 16:06 Phi Wright, RN is Primary Nurse. ll1 16:06 No provider procedures requiring assistance completed. IV discontinued, intact, ll1 bleeding controlled, No redness/swelling at site. Pressure dressing applied. Administered Medications: 14:03 Drug: NS 0.9% IV 1000 ml IV at 1 bolus Per protocol; to be given as a bolus over 60 ss minutes Route: IV; Rate: 1 bolus; Site: left antecubital; 16:06 Follow up: Response: No adverse reaction; IV Status: Completed infusion; IV Intake: ll1 1000ml Medication: 14:52 VIS not applicable for this client. ll1 Intake: 16:06 IV: 1000ml; Total: 1000ml. ll1 Outcome: 15:54 Discharge ordered by . kb 16:06 Discharged to home ambulatory, ll1 16:06 Condition: stable 16:06 Discharge instructions given to patient, Instructed on discharge instructions, follow up and referral plans. Demonstrated understanding of instructions, follow-up care, 16:07 Patient left the ED. ll1 Signatures: Dispatcher [employer] EDMS Nuris Zamarripa, COMMUNITY ORGANIZATION WORKER-C COMMUNITY ORGANIZATION WORKER-Ckb Vazquez, Alisson, Reg Reg mr Amanda Bains, RN RN ss Phi Wright RN RN ll1 Kath Lawson RN RN ko1 Corrections: (The following items were deleted from the chart) 14:06 13:54 Urinalysis+U.LAB.BRZ drawn and sent. [place]
[2024-11-23 16:12] VITALS: TEMP 97
[2024-11-23 16:14] VITALS: BP 155/90; O2SAT 96
== END 2024-11-23 16:07 | disposition home or self-care (01) ==
LOC: ER 12:51
DX: R31.9 Hematuria, unspecified (principal)
CPT/HCPCS: 96361; 85025; 36415; 82565; 81015; 80053; 74177; 96360; 99284; Q9967; J7030

== ENCOUNTER 2025-01-05 11:18 | Day surgery (SDC) | payer OTHER, BC ==
[2024-12-30 10:27] LABS: Absolute Eosinophils 0.1 K/uL (0-0.5); Absolute Lymphocytes (CBC) 2.1 K/uL (0.7-4.9); Absolute Monocytes 0.5 K/uL (0.1-1.3); Absolute Neutrophil 4.2 K/uL (1.8-8.0); Basophils % 0.4 % (0-1.3); Eosinophils % 2.1 % (0-4.4); Hematocrit 45.1 % (39.6-49.0); Hemoglobin 15.2 g/dL (13.6-17.9); Lymphocytes % 29.8 % (15.3-44.8); MCH 30.7 pg (27.0-35.0); MCHC 33.7 g/dL (32.0-36.0); MPV 8.6 fL (7.6-11.3); Monocytes % 7.3 % (3.3-12.3); Neutrophils % 60.4 % (41.7-73.7); Nucleated Red Blood Cells % 0.3 % (0-0); Platelets 189 thou/uL (152-406); RBC Red Blood Cell Count 4.96 M/uL (4.33-5.43); Red Cell Distribution Width 13.6 % (12.1-15.2)
[2024-12-30 10:30] LABS: PT Prothrombin Time 10.9 SECONDS (10-13.0); Protime INR 0.95
[2024-12-30 11:18] LABS: Anion Gap 7.3 mEq/L (5.0-15.0); Potassium 4.3 mEq/L (3.5-5.1)
--- NOTE | 2024-12-30 11:45 | RAD REPORT ---
EXAMINATION: TWO VIEW CHEST XR CLINICAL INDICATION: Pre-op pending surgery TECHNIQUE: 2 views of the chest was performed. COMPARISON: No prior exam. FINDINGS: There is mild linear atelectasis in both lung bases. Lungs otherwise clear. The heart is upper limit of normal in size. No displaced fractures evident.
--- NOTE | 2024-12-31 08:38 | EKG ---
Test Date: 2024-12-30 Test Time: 09:45:01 Letter Carrier: TATI MEASUREMENT RESULTS: Intervals: Rate: 60 MD: 148 QRSD: 82 QT: 402 QTc: 402 [place]: P: 49 MD: 148 QRS: 4 T: 21 INTERPRETIVE STATEMENTS: Normal sinus rhythm Possible Left atrial enlargement Borderline ECG No previous ECG available for comparison Electronically Signed On 12-31-24 08:35:51 CDT by Stan Tovar
[2025-01-05] MEDS: Ringers Lactate 1,000 ML IV ONE ×2 (11:47→17:35)
[2025-01-05] MEDS ORDERED: PHENAZOPYRIDINE 100MG TAB PO ONE ×2 (14:19→20:03)
[2025-01-05] MEDS ORDERED: HYDROCODONE/APAP 5/325 MG TAB PO PRN (14:19)
[2025-01-05] MEDS ORDERED: propofoL 200 MG/20 ML VIAL IV ONE (16:36)
[2025-01-05] MEDS ORDERED: FENTANYL CITR 100 MCG/2 ML ONE (16:36)
[2025-01-05] MEDS ORDERED: LIDOCAINE 1% MPF 5 ML VIAL ONE (16:36)
[2025-01-05] MEDS ORDERED: ONDANSETRON 4 MG/2 ML VIAL ONE (16:36)
[2025-01-05] MEDS ORDERED: MIDAZOLAM HCL 2 MG/2 ML INJ ONE (16:36)
[2025-01-05] MEDS: CEFAZOLIN SODIUM 2 GM/VIAL ONE (16:55)
[2025-01-05] MEDS ORDERED: MORPHINE 10 MG/ML VIAL ONE (17:42)
[2025-01-05] MEDS ORDERED: dexAMETHasone 10 MG/ML VIAL ONE (17:46)
[2025-01-05] MEDS: MEPERIDINE HCL 25 MG/ML SYR ONE (18:53)
--- NOTE | 2025-01-05 19:09 | RAD REPORT ---
EXAM: Fluoroscopy use, Urethrocystogrphy Retrograde HISTORY: CYSTO RETROGRADES COMPARISON: None FINDINGS: A total of 36 images were sent to PACS, during a fluoroscopically guided bilateral ureteral stent placement. No radiologist was involved in protocoling or performance of the study, and no radiologist was present for the duration of the procedure. No interpretation of the saved images will be provided. Total fluoroscopy time: 1:47. IMPRESSION: Documentation of fluoroscopy use as above.
[2025-01-05 19:20] VITALS: TEMP 97.1
--- NOTE | 2025-01-05 19:43 | P.OP ---
Date of Service: 01/05/25 Preoperative diagnoses: Gross hematuria Positive/suspicious voided urinary cytology BPH with obstruction and LUTS Bladder cellules Postoperative diagnoses: Gross hematuria Positive/suspicious voided urinary cytology BPH with obstruction and LUTS Bladder cellules Meatal stenosis Ectopic ureteral orifices bilaterally Principal procedures: Meatal dilation using sounds Cystoscopy Right retrograde pyelography Left retrograde pyelography Attempted left ureteroscopy Left ureteral wash/barbotage cytology Right ureteral wash/barbotage cytology Cystoscopic random bladder biopsies and fulguration Transurethral resection prostatic urethral biopsies Urethral Griffith catheter placement Initiation of continuous bladder irrigation Indication for procedure: 69-year-old gentleman presented to the urology clinic with a history of gross hematuria. He underwent evaluation including a CT scan prior to that visit which was done with IV contrast, but no delayed phase images were obtained. The CT identified the presence of a small bladder diverticulum, bilateral inguinal hernias containing fat, and colonic diverticula without diverticulitis. It also identified a tiny umbilical hernia and the prostate gland with an enlarged calcification that abuts the base of the bladder. He underwent outpatient cystoscopic evaluation which was negative for bladder tumor or papillary mucosal lesion, foreign body or stone visible. A voided urine was sent for cytology, given the negative cystoscopic evaluation, and it returned suspicious for malign ant cells. As a result, he was counseled on the need for operative evaluation including bladder biopsies, prostatic urethral biopsies, and bilateral upper tract surveys. Procedure note: The patient was consented in the preoperative holding area before being transferred to the operative suite where general anesthesia was induced. He was given Ancef 2 g IV antimicrobial prophylaxis, and pneumoboots were provided for DVT prophylaxis. He was placed in the lithotomy position, padded and secured to the table appropriately. His genitalia was prepped with Hibiclens and he was draped in standard fashion. The case was begun attempting to pass a 22 [place] rigid cystoscope into his urethra, but this was thwarted due to meatal stenosis. As a result, urethral sounds were required to dilate the meatus and fossa navicularis from 20 [place] to 30 [place]. Significant stenosis was encountered but was dilated successfully. I then was able to insert the 22 [place] rigid cystoscope via the urethra and navigate through the prostatic urethra into the bladder. I surveyed the bladder in its entirety using a 30 and then switching to a 70 degree lens. Cystoscopic findings: Meatus: Stenotic Urethra: No papillary mucosal lesions or stricture disease noted Prostatic urethra: Kissing and slightly interdigitating lateral lobar hypertrophy with very high elevated median bar without significant intravesical projection of the median lobe Bladder: Markedly trabeculated with numerous large cellules posterior and laterally without papillary mucosal lesion identified throughout the bladder or within the cellules. The ureteral orifices were orthotopic in localization and lateral within the wall of the bladder. They were not sitting within the trigone. I thus cannulated the right ureteral orifice using the tip of the sensor wire and passing the 5 [place] ureteral access catheter over it. Right retrograde pyelography: Using a 70: 30 mixture of Omnipaque and saline, contrast was injected via the l umen of the 5 [place] ureteral access catheter and did propagate up the distal into the mid and proximal ureter before entering the renal pelvis and calyces. No significant pelvic caliectasis was noted. No ureteral filling defects were noted. There was mild ureteral tortuosity, but no ureteral dilatation was noted. Initially, there was a rounded and mobile filling defect that was visible within the renal pelvis on the right, but this resolved with subsequent fluoroscopic images. I thus passed a sensor wire via the 5 [place] ureteral access catheter coiling it within the upper pole of the right collecting system and I left in place. I then turned my attention to his left side. Similarly cannulating the left ureteral orifice using the tip of the sensor wire and 5 [place] ureteral access catheter, I performed a left retrograde study. Left retrograde pyelography: Using a 70: 30 mixture of Omnipaque and saline, the contrast mixture was injected via the lumen of the 5 [place] ureteral access catheter and did propagate up the distal into the mid and proximal left ureter before entering the renal pelvis and calyces. Again, no significant pelvocaliectasis was noted and no ureteral filling defects were seen. There again was mild ureteral tortuosity on the left, but no significant ureteral dilation was noted. No filling defects were noted. I thus passed the sensor wire via the 5 [place] ureteral access catheter coiling it within the upper pole calyx of the left kidney. I remove the 5 [place] ureteral access catheter and passed a dual-lumen catheter over the sensor wire into the distal ureter. Left ureteral wash/barbotage cytology: Using a fresh 30 cc syringe and about 20 cc of saline, I injected the saline via the second lumen of the dual-lumen catheter and collected the E flux drainage of fluid from the second lumen of the dual-lumen catheter and by aspirating directly from the infusion port itself, after the fluid had several seconds to dwell. I then additionally allowed an additional 1 to 2 minutes to collect urine drainage from within the kidney and the ureter. This was sent for pathologic analysis. I then passed a [place] guidewire via the second lumen of the dual-lumen catheter and remove the dual-lumen catheter. I attempted to pass a flexible ureteroscope over the [place] guidewire, but it would not pass more than 1 to 2 cm into the distal left ureteral orifice. As a result, I garnered a 11 x 13 [place] ureteral access sheath which I attempted to pass into the distal ureter, but it also would not pass beyond that same point of obstruction 1 to 2 cm into the left ureteral orifice. As a result, I discontinued further efforts at left ureteroscopy, and instead, I turned my attention back to the patient's right side. Right ureteral wash/barbotage cytology: After flushing the dual-lumen catheter copiously with saline, I then passed it over the right side sensor wire into the ureteral orifice and distal ureter before it met a point of obstruction, likely due to ureteral spasm. As a result, I again injected 20 cc of saline with a fresh 30 cc syringe via the second lumen of the dual-lumen catheter. As before, I collected the drainage from the second lumen and after several seconds, by aspirating directly from the infusion port itself. I additionally allowed a couple of additional minutes to collect passive drainage of urine from the kidney. This fluid was sent for pathologic analysis. I then remove the dual-lumen catheter and backloaded the cystoscope over the indwelling sensor wire on the right before passing under direct vision a 6 [place] by 26 cm double-J ureteral stent. A coil was formed fluoroscopically within the renal pelvis and 1 cystoscopically within his bladder on the right. I then turned my attention to the patient's left side, where unfortunately the sensor wire had become dislodged with all the manipulation. I recannulated the ectopic ureteral orifice using the tip of a sensor wire and a 5 [place] ureteral access catheter, and I advanced the sensor wire successfully into the collecting system as evidenced fluoroscopically. I then similarly passed a 6 [place] by 26 cm double-J ureteral stent over that sensor wire into the collecting system on the left with a coil observed fluoroscopically in the upper pole and 1 cystoscopically formed in his bladder. Prostatic urethral and bladder biopsies and fulguration: I then utilized urethral sounds to dilate the meatus and fossa navicularis again with a 30 [place] sound before passing a 26 [place] bipolar resection scope via his urethra into his bladder using a visual obturator. Then, using the thin loop, I resected the elevated bladder neck and in the process took prostatic urethral biopsies. In so doing, I basically completed a bit of a channel TURP. These chips were collected and sent for pathologic analysis as prostatic urethral biopsies. I then copiously fulgurated the entirety of the base of the area resected/biopsied before turning my attention to the bladder. I then surveyed the bladder again for any sign of lesion to be targeted, and when none was noted, I utilized a cold cup biopsy forceps to perform standard random bladder biopsies as follows: A) trigone B) posterior wall C) dome D) left lateral wall F) right lateral wall I then utilized the thin resection loop to fulgurate the base of each of these biopsy sites until they were hemostatic with the bladder completely decompressed. I then had to spend significant additional time again fulgurating the prostatic urethra because of the incomplete resection, it continued to want to ooze. I then surveyed the bladder for any residual bleeding before irrigating it to remove any clots within, and then I left the bladder full removing the resectoscope. I then passed a 22 [place] three-way Griffith catheter via his urethra into his bladder with ease and instilled 30 cc of sterile water into the balloon. The catheter was connected to slow drip CBI with normal saline, and I placed the catheter to moderate traction on his left upper thigh. The drainage of fluid and urine was light pink. As a result, he was taken out of the lithotomy position, awakened from general anesthesia, transferred to a stretcher, and then transferred to the recovery room in good condition. Complications: None Discharge disposition: We will take down the traction and given a voiding trial in the recovery room prior to discharge today. If he is successful, he will go home without the catheter. Subsequent follow-up should be established in 1 to 2 weeks to discuss the results of the pathology of today's specimens as follows: A) left ureteral wash cytology B) right ureteral wash cytology C) bladder biopsies: Trigone, posterior, dome, left lateral wall, right lateral wall D) prostatic urethral biopsies Subsequent operative evaluation versus plan to remove the stents will be determined based on the pathologic result. Subsequent management of his BPH may be considered thereafter, and since the elevated median bar has not been resected, depending on the volume of his prostate, he could either undergo a UroLift or completion bipolar TURP.
[2025-01-05] MEDS ORDERED: HYDROCODONE/APAP 5/325 MG TAB ONE (19:59)
[2025-01-05] MEDS: HYDROCODONE/APAP 5/325 MG TAB PO PRN (20:03)
[2025-01-05] MEDS: PHENAZOPYRIDINE 100MG TAB PO ONE (20:07)
[2025-01-05] MEDS ORDERED: NA CHLORIDE 0.9% 500 ML IV ONE (20:30)
[2025-01-05] MEDS ORDERED: FUROSEMIDE 20 MG/ 2ML VIAL IV ONE (20:30)
[2025-01-05] MEDS ORDERED: LIDOCAINE JELLY 2% 5 ML SYRINGE TOP ONE (20:30)
[2025-01-05] MEDS: FUROSEMIDE 40 MG/4 ML VIAL ONE (20:40)
[2025-01-05] MEDS: NA CHLORIDE 0.9% 500 ML ONE (20:46)
[2025-01-05 22:11] VITALS: BP 154/93; O2SAT 98
== END 2025-01-05 22:02 | disposition home or self-care (01) ==
LOC: OR 11:18
PROVIDERS: ATTEND Urology
PROC: 0TBB8ZX Excision of Bladder, Via Natural or Artificial Opening Endoscopic, Diagnostic (ICD-10-PCS; 2025-01-05)
PROC: 0TBD8ZX Excision of Urethra, Via Natural or Artificial Opening Endoscopic, Diagnostic (ICD-10-PCS; principal; 2025-01-05 12:45)
DX: N02.9 Recurrent and persistent hematuria with unspecified morphologic changes (principal); R82.89 Other abnormal findings on cytological and histological examination of urine; N40.1 Benign prostatic hyperplasia with lower urinary tract symptoms; N13.8 Other obstructive and reflux uropathy; N35.911 Unspecified urethral stricture, male, meatal; Q62.63 Anomalous implantation of ureter
CPT/HCPCS: 52204; 93005; 87088; 85025; 87086; 80048; 36415; 85610; 88305; 71046; 74450; 51610; J2704; J2003; J1940; J2250; J3010; J1100; J2175; J2405; J7120 ×2; J7040

== ENCOUNTER 2025-01-06 08:36 | Emergency (ER) | payer BC, OTHER ==
--- OUTSIDE RECORDS SUMMARY | 2025-01-06 08:40 | XMS REPORT | Continuity of Care Document ---
Author Name Unknown Address [address] [facility]. [address] [place] [address] [facility] Address [address] [facility] 1 [address] [place] [address] Care Team Providers Care Production Editor Name Role Phone IDRIS GOODRICH Attending Clinician Unavailable Leslie Attending Clinician Unavailable CHRISTY NOBLES Attending Clinician Unavailable Krystin Attending Clinician Unavailable FEDERICO FRAUSTO Attending Clinician Unavailable JULIET STERN Attending Clinician Unavailab Jolley Attending Clinician Unavailable BALJEET MANCUSO Attending Clinician Unavailable DIANDRA CERDA Attending Clinician Unavailable DELMY GARCIA Attending Clinician Ayala vajavier Nelson Admitting Clinician Unavailable Krystin Admitting Clinician Unavailable Mallorie Admitting Clinician Unavailable Payers Payer Name Policy Type Policy Number Effective Date Expirati on Date Source [place] [id number] 2021 00:00:00 [facility] 57 Problems Condition Name Condition Details Condition [...] Problem Active 2023-10 00:00: 00 [place] [facility] Acute pharyngiti s Acute Pharyngiti s Problem Active 2023-10 2 00:00: 00 [place] [facility] Nasal congestion Nasal Congestion Problem Active 3 00:00: 00 [facility] COVID-19 Covid-19 Problem Active 12-27 00:00: 00 [facility] Rayray hematuria Rayray Hematuria Problem Active 2 00:00: 00 [facility] Acute bacterial bronchitis Acute Bacterial Bronchitis Problem Active 11-03 00:00: 00 [facility] Overweight Overweight Problem Active 11-03 00:00: 00 [facility] [id number] Recurrent gross hematuria Problem [facility] [id number] Benign prostatic hyperplasi a with lower urinary tract symptoms Problem [facility] [id number] Other obstructiv e and reflux uropathy Problem [facility] Allergies, Adverse Reactions, Alerts Allergy Name Allergy Type Status Severity Reaction(s) Onset Date Inactive Date Treating Clinician Comments Source Lipitor Allergy to substanc e Active [facility] Naprosyn Allergy to substanc e Active [facility] naproxen naproxen Active Unknown Commo n [facility] Naproxen Allergy to substanc e Active Anaphylaxis [facility] Social History Social Habit Start Date Stop Date Quantity Comments Source History of Tobacco Use [facility] Sex Assigned At [facility] Smoking Status Start Date Stop Date Source Never Smoker [facility] Former Smoker 2024-12-24 00:00:00 2024-12-24 00:00:00 [facility] Medications Ordered Medication Name Filled Medication Name Start Date Stop Date Current Medication? Ordering Clinician Indication Dosage Frequency Signature (SIG) Comments Components Source Ezetimibe 10 MG Ezetimibe 10 MG No 1{table t} QD Ezetimibe 10 MG Finasteride 5 MG Finasteride 5 MG No 1{table t} QD Finasterid e 5 MG Metoprolol Tartrate 50 MG Metoprolol Tartrate 50 MG No 1{table t_with_ food} BID Metoprolol Tartrate 50 MG Baby Aspirin Baby Aspirin No Baby Aspirin Tamsulosin HCl 0.4 MG Tamsulosin HCl 0.4 MG No 1{capsu le} QD Tamsulosin HCl 0.4 MG Aspir-Low 81 mg tablet,priscilla yed release Take 1 tablet every day by oral route. Aspir-Low 81 mg tablet,priscilla yed release Take 1 tablet every day by oral route. No 1 Q1D Aspir-Low 81 mg tablet,del ayed release Take 1 tablet every day by oral route. [facility] ezetimibe 10 mg tablet TAKE 1 TABLET BY MOUTH EVERY DAY ezetimibe 10 mg tablet TAKE 1 TABLET BY MOUTH EVERY DAY No ezetimibe 10 mg tablet TAKE 1 TABLET BY MOUTH EVERY DAY [facility] metoprolol succinate ER 50 mg tablet,exte nded release 24 hr TAKE 1 TABLET BY MOUTH DAILY metoprolol succinate ER 50 mg tablet,exte nded release 24 hr TAKE 1 TABLET BY MOUTH DAILY No metoprolol succinate ER 50 mg tablet,ext ended release 24 hr TAKE 1 TABLET BY MOUTH DAILY [facility] Paxlovid 300 mg (150 mg x 2)-100 [...] 1 RITONAVIR T TOGETHER PO BF 5 [facility] aspirin 81 mg tablet,priscilla yed release Take 1 tablet every day by oral route. aspirin 81 mg tablet,priscilla yed release Take 1 tablet every day by oral route. No 1 Q1D aspirin 81 mg tablet,del ayed release Take 1 tablet every day by oral route. [facility] ezetimibe 10 mg tablet TAKE 1 TABLET BY MOUTH EVERY DAY ezetimibe 10 mg tablet TAKE 1 TABLET BY MOUTH EVERY DAY No ezetimibe 10 mg tablet TAKE 1 TABLET BY MOUTH EVERY DAY [facility] finasteride 5 mg tablet TAKE 1 TABLET BY MOUTH DAILY finasteride 5 mg tablet TAKE 1 TABLET BY MOUTH DAILY No finasterid e 5 mg tablet TAKE 1 TABLET BY MOUTH DAILY [facility] Program metoprolol succinate ER 50 mg tablet,exte nded release 24 hr TAKE 1 TABLET BY MOUTH DAILY metoprolol succinate ER 50 mg tablet,exte nded release 24 hr TAKE 1 TABLET BY MOUTH DAILY No metoprolol succinate ER 50 mg tablet,ext ended release 24 hr TAKE 1 TABLET BY MOUTH DAILY [facility] tamsulosin 0.4 mg capsule TAKE 1 CAPSULE BY MOUTH DAILY tamsulosin 0.4 mg capsule TAKE 1 CAPSULE BY MOUTH DAILY No tamsulosin 0.4 mg capsule TAKE 1 CAPSULE BY MOUTH DAILY [facility] Program azithromyci n 250 mg tablet TAKE [...] ORAL ROUTE ONCE DAILY FOR 4 DAYS [facility] Program dicyclomine 20 mg tablet Take 1 tablet 4 times a day by oral route as needed, for Abdominal cramping. dicyclomine 20 mg tablet Take 1 tablet 4 times a day by oral route as needed, for Abdominal cramping. No 1 QID dicyclomin e 20 mg tablet Take 1 tablet 4 times a day by oral route as needed, for Abdominal cramping. [facility] Program Immunizations Ordered Immunization Name Filled Immunization Name Date Status Comments Source Influenza vaccine, quadrivalent, adjuvanted Influenza vaccine, quadrivalent, adjuvanted Unknown [facility] influenza, injectable, quadrivalent, preservative free influenza, injectable, quadrivalent, preservative free Unknown Completed [facility] Tdap Tdap Unknown Completed [facility] influenza, injectable, quadrivalent influenza, injectable, quadrivalent Unknown Completed [facility] COVID-19, mRNA, LNP-S, PF, 100 mcg/0.5 mL dose (Moderna) - ML COVID-19, mRNA, LNP-S, PF, 100 mcg/0.5 mL dose (Moderna) - ML Unknown Completed [facility] influenza, unspecified formulation influenza, unspecified formulation Unknown Completed [facility] Vital Signs Vital Name Observation Time Observation Value Comments S ource height 2024-12-24 14:30:00 71 [in_i] Commo n [facility] weight 2024-12-24 14:30:00 200.6 [lb_av] Co mmon [facility] temperature 2024-12-24 14:30:00 98.0 [degF] Com mon [facility] bmi 2024-12-24 14:30:00 27.97 kg/m2 Comm on [facility] oximetry 2024-12-24 14:30:00 95 % Commo n [facility] respiratory rate 2024-12-24 14:30:00 18 /min [facility] blood pressure systolic 2024-12-24 14:30:00 131 mm[Hg] [facility] blood pressure diastolic 2024-12-24 14:30:00 83 mm[Hg] [facility] BP Systolic 2024-09-12 00:00:00 137 mm[Hg] [facility] Height 2024-09-12 00:00:00 71 [in_i] [place] [facility] BMI (Body Mass Index) 2024-09-12 00:00:00 27.6 kg/m2 [facility] Body Weight 2024-09-12 00:00:00 3168 [oz_av] [facility] BP Diastolic 2024-09-12 00:00:00 89 mm[Hg] [facility] Body Weight 2024-09-10 00:00:00 3200 [oz_av] [facility] BMI (Body Mass Index) 2024-09-10 00:00:00 27.9 kg/m2 [facility] BP Diastolic 2024-09-10 00:00:00 97 mm[Hg] [facility] BP Systolic 2024-09-10 00:00:00 162 mm[Hg] [facility] Height 2024-09-10 00:00:00 71 [in_i] [facility] [facility] Height 2024-05-05 00:00:00 69.2 [in_i] [facility] BP Diastolic 2024-05-05 00:00:00 88 mm[Hg] [facility] BP Systolic 2024-05-05 00:00:00 140 mm[Hg] [facility] BMI (Body Mass Index) 2024-05-05 00:00:00 28.5 kg/m2 [facility] Body Weight 2024-05-05 00:00:00 3104 [oz_av] [facility] BP Systolic 2024-02-24 00:00:00 155 mm[Hg] [facility] Height 2024-02-24 00:00:00 69.2 [in_i] [facility] BP Diastolic 2024-02-24 00:00:00 98 mm[Hg] [facility] Body Weight 2024-02-24 00:00:00 3104 [oz_av] [facility] BMI (Body Mass Index) 2024-02-24 00:00:00 28.5 kg/m2 [facility] Body Weight 2023-12-28 00:00:00 3152 [oz_av] [facility] BP Systolic 2023-12-28 00:00:00 135 mm[Hg] [facility] Height 2023-12-28 00:00:00 69.2 [in_i] [facility] BMI (Body Mass Index) 2023-12-28 00:00:00 28.9 kg/m2 [facility] BP Diastolic 2023-12-28 00:00:00 90 mm[Hg] [facility] BP Systolic 2023-07-22 00:00:00 139 mm[Hg] [facility] BMI (Body Mass Index) 2023-07-22 00:00:00 28.5 kg/m2 [facility] BP Diastolic 2023-07-22 00:00:00 88 mm[Hg] [facility] Height 2023-07-22 00:00:00 69.2 [in_i] [facility] Body Weight 2023-07-22 00:00:00 3104 [oz_av] [facility] BP Diastolic 2022-11-26 00:00:00 93 mm[Hg] [facility] Height 2022-11-26 00:00:00 69.2 [in_i] [facility] BMI (Body Mass Index) 2022-11-26 00:00:00 27.9 kg/m2 [facility] BP Systolic 2022-11-26 00:00:00 145 mm[Hg] [facility] Body Weight 2022-11-26 00:00:00 3040 [oz_av] [facility] BP Diastolic 2022-11-24 00:00:00 100 mm[Hg] [facility] Height 2022-11-24 00:00:00 69.2 [in_i] [facility] BMI (Body Mass Index) 2022-11-24 00:00:00 27.9 kg/m2 [facility] BP Systolic 2022-11-24 00:00:00 154 mm[Hg] [facility] Body Weight 2022-11-24 00:00:00 3040 [oz_av] [facility] BP Diastolic 2022-11-03 00:00:00 93 mm[Hg] [facility] Height 2022-11-03 00:00:00 69.2 [in_i] [facility] BMI (Body Mass Index) 2022-11-03 00:00:00 28 kg/m2 [facility] BP Systolic 2022-11-03 00:00:00 134 mm[Hg] [facility] Body Weight 2022-11-03 00:00:00 3047 [oz_av] [facility] Height 2022-10-17 00:00:00 69.2 [in_i] [facility] BP Diastolic 2022-08-27 00:00:00 97 mm[Hg] [facility] Height 2022-08-27 00:00:00 69.2 [in_i] [facility] BMI (Body Mass Index) 2022-08-27 00:00:00 28.9 kg/m2 [facility] BP Systolic 2022-08-27 00:00:00 147 mm[Hg] [facility] Body Weight 2022-08-27 00:00:00 3152 [oz_av] [facility] BP Systolic 2022-08-02 00:00:00 128 mm[Hg] [facility] Body Weight 2022-08-02 00:00:00 3184 [oz_av] [facility] BP Diastolic 2022-08-02 00:00:00 85 mm[Hg] [facility] Height 2022-08-02 00:00:00 71 [in_i] [facility] BMI (Body Mass Index) 2022-08-02 00:00:00 27.8 kg/m2 [facility] BP Diastolic 2021-08-24 00:00:00 89 mm[Hg] [facility] Height 2021-08-24 00:00:00 71 [in_i] [facility] BMI (Body Mass Index) 2021-08-24 00:00:00 26.2 kg/m2 [facility] BP Systolic 2021-08-24 00:00:00 143 mm[Hg] [facility] Body Weight 2021-08-24 00:00:00 3011 [oz_av] [facility] BP Diastolic 2021-07-31 00:00:00 85 mm[Hg] [facility] Height 2021-07-31 00:00:00 71 [in_i] [facility] BMI (Body Mass Index) 2021-07-31 00:00:00 26.2 kg/m2 [facility] BP Systolic 2021-07-31 00:00:00 121 mm[Hg] [facility] Body Weight 2021-07-31 00:00:00 3000 [oz_av] [facility] BP Diastolic 2020-12-16 00:00:00 86 mm[Hg] [facility] Height 2020-12-16 00:00:00 71 [in_i] [facility] BMI (Body Mass Index) 2020-12-16 00:00:00 26.4 kg/m2 [facility] BP Systolic 2020-12-16 00:00:00 131 mm[Hg] [facility] Body Weight 2020-12-16 00:00:00 3025.6 [oz_av] [facility] BP Diastolic 2019-12-16 00:00:00 82 mm[Hg] [facility] Height 2019-12-16 00:00:00 71 [in_i] [facility] BMI (Body Mass Index) 2019-12-16 00:00:00 28 kg/m2 [facility] BP Systolic 2019-12-16 00:00:00 133 mm[Hg] [facility] Body Weight 2019-12-16 00:00:00 3207 [oz_av] [facility] Procedures Procedure Date / Time Performed Performing Clinicia n Source XR, chest, 2 view 2023-07-22 00:00:00 [facility] Colonoscopy Thru Stoma Spx 2008-10-07 00:00:00 [facility] Encounters Start Date/Time End Date/Time Encounter Type Admission Type Attending Clinicians Care Facility Care Department Encounter ID Source 2024-12-24 14:10:01 Outpatient STREGENCY MERIDIAN [id number] [facility] 2024-12-24 00:00:00 2024-12-24 00:00:00 OFFICE VISIT ESTAB PT LEVEL 4 [facility] [id number] [facility] 2024-09-12 00:00:00 2024-09-12 00:00:00 Alisson Sotelo, STAKING TECHNICIAN: [address] [place] [address] , [facility]. [facility] [id number] [facility] 2024-09-10 00:00:00 2024-09-10 00:00:00 Jaqueline Bundy, STAKING TECHNICIAN: [address] [place] [address] , [facility]. [facility] Primary Expansion [id number] [facility] 2024-05-05 00:00:00 2024-05-05 00:00:00 Christy Nobles, STAKING TECHNICIAN: [address], [address], [place] [address] , Ph. [facility] [id number] [facility] 2024-02-24 00:00:00 2024-02-24 00:00:00 Christy Nobles, STAKING TECHNICIAN: [address] [facility] [address], [address], [place] [address] , Ph. [facility] [phone] [facility] 2024-01-03 08:01:00 2024-01-03 08:01:00 Outpatient IDRIS RANDLE [facility] [id number] [facility] 2023-12-28 00:00:00 2023-12-28 00:00:00 Tameka Salguero, STAKING TECHNICIAN: [address] [facility] [address], [address], [place] [address] , Ph. Leslie [facility] [id number] [facility] 2023-08-14 08:15:00 2023-08-14 08:15:00 Outpatient CHRISTY CARRASQUILLO [facility] [id number] [facility] 2023-07-22 00:00:00 2023-07-22 00:00:00 Outpatient Evans_S [facility] MM [id number] [facility] 2023-07-22 00:00:00 2023-07-22 00:00:00 Outpatient Evans_S MMG MM [id number] [facility] 2023-07-22 00:00:00 2023-07-22 00:00:00 Christy Nobles, STAKING TECHNICIAN: [address], [address], [place] [address] , Ph. [facility] [id number] [facility] 2023-01-30 14:12:00 2023-01-30 14:12:00 Outpatient FEDERICO SAINZ [facility] [id number] [facility] 2022-12-04 08:14:00 2022-12-04 08:14:00 Outpatient CHRISTY CARRASQUILLO [facility] [id number] [facility] 2022-11-26 00:00:00 2022-11-26 00:00:00 Outpatient [facility] [id number] [facility] 2022-11-26 00:00:00 2022-11-26 00:00:00 Christy Nobles, STAKING TECHNICIAN: [address], [place] [address] , Ph. [facility] [id number] [facility] 2022-11-24 10:27:00 2022-11-24 10:27:00 Outpatient NICCI STERN JULIET [facility] [id number] [facility] 2022-11-24 00:00:00 2022-11-24 00:00:00 Outpatient Evans_S MMG [facility] [id number] [facility] 2022-11-24 00:00:00 2022-11-24 00:00:00 JOSE Adrian-C: [address], [place] [address] , Ph. [facility] [id number] [facility] 2022-11-23 00:00:00 2022-11-23 00:00:00 Outpatient Shield MMG MMG [id number] [facility] 2022-11-03 00:00:00 2022-11-03 00:00:00 Outpatient Shield MMG MMG [id number] [facility] 2022-11-03 00:00:00 2022-11-03 00:00:00 Outpatient Shield MMG [facility] [id number] [facility] 2022-11-03 00:00:00 2022-11-03 00:00:00 Tameka Salguero, STAKING TECHNICIAN: [address], [place] [address] , Ph. MM[facility] [id number] [facility] 2022-10-17 00:00:00 2022-10-17 00:00:00 Outpatient Shield MMG MM[facility] [id number] [facility] 2022-10-17 00:00:00 2022-10-17 00:00:00 Outpatient Shield MMG MMG [id number] [facility] 2022-10-17 00:00:00 2022-10-17 00:00:00 Christy Nobles, STAKING TECHNICIAN: [address], [place] [address] , Ph. MM[facility] [id number] [facility] 2022-09-18 14:20:00 2022-09-18 14:20:00 Outpatient CHRISTY CARRASQUILLO [facility] [id number] [facility] 2022-08-27 14:44:00 2022-08-27 14:44:00 Outpatient CHRISTY CARRASQUILOL [facility] [id number] [facility] 2022-08-27 00:00:00 2022-08-27 00:00:00 Outpatient Shield MMG MMG [id number] [facility] 2022-08-27 00:00:00 2022-08-27 00:00:00 Outpatient Shield MMG MMG [id number] [facility] 2022-08-27 00:00:00 2022-08-27 00:00:00 Christy Nobles, STAKING TECHNICIAN: [address], [place] [address] , Ph. MM[facility] [id number] [facility] 2022-08-02 00:00:00 2022-08-02 00:00:00 Outpatient Shield MMG MMG [id number] [facility] 2022-08-02 00:00:00 2022-08-02 00:00:00 Christy Nobles, STAKING TECHNICIAN: [address] [facility] [address], [place] [address] , Ph. MM[facility] [id number] [facility] 2021-08-24 00:00:00 2021-08-24 00:00:00 Outpatient Shield MMG MMG [id number] [facility] 2021-08-24 00:00:00 2021-08-24 00:00:00 Christy Nobles, STAKING TECHNICIAN: [address] [facility] [address], [place] [address] , Ph. MM[facility] [id number] [facility] 2021-08-23 05:49:00 2021-08-23 05:49:00 Outpatient Shield MMG MMG [id number] [facility] 2021-08-04 06:11:00 2021-08-04 06:11:00 Outpatient Hawkins_M MMG MMG [id number] [facility] 2021-07-31 10:57:00 2021-07-31 10:57:00 Outpatient CHRISTY CARRASQUILLO [facility] [id number] [facility] 2021-07-31 07:05:00 2021-07-31 07:05:00 Outpatient Hawkins_M MMG MM [id number] [facility] 2021-07-31 00:00:00 2021-07-31 00:00:00 Christy Nobles, STAKING TECHNICIAN: [address], [place] [address] , [facility] [id number] [facility] 2020-12-30 15:42:00 2020-12-30 15:42:00 Outpatient IDRIS RANDLE [facility] [id number] [facility] 2020-12-22 08:05:00 2020-12-22 08:05:00 Outpatient IDRIS RANDLE [facility] [id number] [facility] 2020-12-16 10:38:00 2020-12-16 10:38:00 Outpatient Hawkins[facility]M [facility] [id number] [facility] 2020-12-16 10:38:00 2020-12-16 10:38:00 Outpatient Hawkins_M MMG MMG [id number] [facility] 2020-12-16 00:00:00 2020-12-16 00:00:00 Tameka Salguero, STAKING TECHNICIAN: [address], [place] [address] , Ph. MM[facility] [id number] [facility] 2020-12-15 02:13:00 2020-12-15 02:13:00 Outpatient Hawsean_M MM[facility] [id number] [facility] 2020-08-24 02:28:00 2020-08-24 02:28:00 Outpatient Shield [facility] [id number] [facility] 2020-07-04 08:03:00 2020-07-04 08:03:00 Outpatient IDRIS RANDLE [facility] [id number] [facility] 2019-12-16 09:24:00 2019-12-16 09:24:00 Outpatient Shield [facility] [id number] [facility] 2019-12-16 00:00:00 2019-12-16 00:00:00 Christy Nobles, STAKING TECHNICIAN: [address] [address] , Ph. MMG [facility] [id number] Travisr deyvi [facility] 2018-09-09 11:50:00 2018-09-09 11:50:00 Outpatient NICCI MALLORIECHRISTY [facility] [id number] [facility] 2014-05-12 09:25:00 2014-05-12 09:25:00 Outpatient IDRIS RANDLE [facility] [id number] [facility] 2013-11-10 11:46:00 2013-11-10 11:46:00 Outpatient BALJEET CR [facility] [id number] [facility] 2011-09-06 08:01:00 2011-09-06 08:01:00 Outpatient IDRIS RANDLE [facility] [id number] [facility] 2011-08-10 07:31:00 2011-08-10 07:31:00 Outpatient IDRIS RANDLE [facility] [id number] [facility] 2009-08-12 07:27:00 2009-08-12 07:27:00 Outpatient DIANDRA LIMON [facility] [id number] [facility] 2009-03-08 08:04:00 2009-03-08 08:04:00 Outpatient IDRIS RANDLE [facility] [id number] [facility] 2007-07-07 08:01:00 2007-07-07 08:01:00 Outpatient IDRIS RANDLE [facility] [id number] [facility] 2003-08-24 08:16:00 2003-08-24 08:16:00 Outpatient IDRIS RANDLE [facility] [id number] [facility] 2001-01-14 03:43:00 2001-01-14 06:15:00 Emergency ER DELMY GARCIA [facility] [id number] [facility] Results Test Description Test Time Test Comments Results Result Co mments Source [facility] ProgramUrinalysis macro (dipstick) panel - [id number] 15:06:00* Test Item Value Reference Range Interpretation Comme nts Leukocytes (test code = Leukocytes) Negative Nitrite (test code = Nitrite) negative Urobilinogen (test code = Urobilinogen) 1 Protein (test code = Protein) Negative pH (test code = pH) 7.0 Blood (test code = Blood) Negative Specific [place] (test code = Specific [place]) 1.020 Ketone (test code = Ketone) Negative Bilirubin (test code = Bilirubin) Negative Glucose (test code = Glucose) Negative Appearance (test code = Appearance) Turbid Color (test code = Color) Dark Yellow [facility] A and B and SARS-CoV+SARS-CoV-2 (COVID- 19) Ag panel - Upper respiratory specimen byRapid [id number] 13:38:02 * Test Item Value Reference Range Interpretation Comme nts RAPID SARS COV (test code = RAPID SARS COV) positive RAPID FLU A (test code = RAP ID FLU A) negative RAPID FLU B (test code = RAP ID FLU B) negative [facility]iculture,urine pres id [id number] 10:58:00* Test Item Value Reference Range Interpretation Comme nts culture,urine (test code = culture,urine) specimen has been received in lab and IS in progress. [facility]inalysis macro (dipstick) panel - [id number] 09:47:00* Test Item Value Reference Range Interpretation Comme nts Leukocytes (test code = Leukocytes) Negative Nitrite (test code = Nitrite) negative Urobilinogen (test code = Urobilinogen) .2 Protein (test code = Protein) Negative pH (test code = pH) 6.5 Blood (test code = Blood) Large Specific [place] (test code = Specific [place]) 1.020 Ketone (test code = Ketone) Negative Bilirubin (test code = Bilirubin) Negative Glucose (test code = Glucose) Negative Appearance (test code = Appearance) Cloudy Color (test code = Color) Dark Yellow [facility]iNoninvasive colorectal cancer DNA and occult blood screening [Presence] in [id number] 19:00:00* Test Item Value Reference Range Interpretation Comme nts cologuard result reportable (test code = cologuard result reportable) negative negative [facility]iBasi metabolic 2000 panel - Serum or [id number] 15:59:00* Test Item Value Reference Range Interpretation [...] code = calcium level) 9.3 mg/dL 8.8-10.2 [facility]ihepatitis C virus [id number] 08:15:00* Test Item Value Reference Range Interpretation Comme nts hepatitis C virus antibody (test code = hepatitis C virus antibody) 0.2 s/co ratio 0.0-0.9 [facility]oxithyroid stimulating hormone [id number] 17:39:00* Test Item Value Reference Range Interpretation Comme nts thyroid stimulating hormone L (test code = thyroid stimulating hormone L) 1.21 uIU/mL 0.36-3.74 [facility]itotal prostate [id number] 17:28:00* Test Item Value Reference Range Interpretation Comme [facility] total prostate screening (te st code = total prostate screening) 3.35 NG/mL 0.0-4.00 [facility] Biloxilipid [id number] 17:23:00* Test Item Value Reference Range Interpretation [...] (test code = cholesterol risk ratio) 4.630 [facility]ihemoglobin [id number] 17:18:00* Test Item Value Reference Range Interpretation Comme nts Hemoglobin A1c/Hemoglobin.to [place] in Blood (test code = 4548-4) 6.0 % 4.0-6.0 [facility] [id number] 17:09:00* Test Item Value Reference Range Interpretation [...] c ode = urine culture added?) no [facility]iPSA, serum or [id number] 00:00:00* Test Item Value Reference Range Interpretation Comme nts PSA, serum or plasma (test c ode = PSA, serum or plasma) 2.79 [facility]iHemoglobin A1c [Mass/volume] in [id number] 00:00:00 * Test Item Value Reference Range Interpretation Comme nts Hemoglobin A1c [Mass/volume] in Blood (test code = 67133-5) 5.7 % 4.0-6.0 [facility]iComprehensive metabolic 2000 panel - Serum or Plasma [...] (test code = 6768-6) 72 U/L 40-130 [facility]
[2025-01-06 09:18] LABS: Absolute Basophils 0.1 K/uL (0-0.5); Absolute Lymphocytes (CBC) 0.9 K/uL (0.7-4.9); Absolute Monocytes 1.2 K/uL (0.1-1.3); Absolute Neutrophil 18.5 K/uL (1.8-8.0); Basophils % 0.3 % (0-1.3); Hematocrit 43.5 % (39.6-49.0); Hemoglobin 14.9 g/dL (13.6-17.9); Lymphocytes % 4.5 % (15.3-44.8); MCH 30.6 pg (27.0-35.0); MCHC 34.3 g/dL (32.0-36.0); MCV 89.4 fL (80-100); Monocytes % 5.9 % (3.3-12.3); Neutrophils % 89.3 % (41.7-73.7); Platelets 222 thou/uL (152-406); RBC Red Blood Cell Count 4.87 M/uL (4.33-5.43); Red Cell Distribution Width 13.6 % (12.1-15.2)
[2025-01-06 09:21] LABS: Anion Gap 11.3 mEq/L (5.0-15.0); Potassium 4.3 mEq/L (3.5-5.1)
--- NOTE | 2025-01-06 09:39 | EDPHYS ---
Physician Documentation [facility] Name: Wanda Elizabeth Age: 69 yrs Sex: Male : 1955 Arrival Date: 01/06/2025 Time: 08:36 Bed 6 Private MD: Ramu Tejada ED Physician Vipul Denny HPI: 01/06 10:20 This 69 yrs old Male presents to ER via Wheelchair with complaints of Problem With ms3 Urinary Catheter, Pelvic Pain, Nausea. 10:20 69-year-old male with past medical history of mitral valve prolapse and hypertension ms3 presents to the emergency department for hematuria. Patient states he had exploratory cystoscopy with bilateral ureteral stent placement and bladder and prostate biopsies performed yesterday. Patient states he was discharged from the PACU at 10 PM last night with a Griffith catheter. Patient was seen at 1:30 AM this morning at the ER in [place] for hematuria. He was instructed follow-up with urology this morning.. Historical: - Allergies: 08:38 Naprosyn; ll1 - PMHx: 08:38 History of urinary tract infection; ll1 - Immunization history:: Adult Immunizations up to date. - Infectious Disease History:: Denies. - Social history:: Smoking status: Patient denies any tobacco usage or history of. ROS: 10:20 Constitutional: Negative for fever, and chills. Cardiovascular: Negative for chest ms3 pain, and palpitations. Respiratory: Negative for shortness of breath, cough, wheezing, and pleuritic chest pain, Abdomen/GI: Negative for abdominal pain, nausea, vomiting, diarrhea, and constipation, 10:20 MS/Extremity: Negative for injury and deformity, Skin: Negative for injury, rash, and discoloration, 10:20 : Positive for hematuria, Exam: 10:20 Constitutional: This is a well developed, well nourished patient who is awake, alert, ms3 and in no acute distress. Cardiovascular: Regular rate and rhythm with a normal S1 and S2. No gallops, murmurs, or rubs. Normal PMI, no JVD. No pulse deficits. Respiratory: Lungs have equal breath sounds bilaterally, clear to auscultation and percussion. No rales, rhonchi or wheezes noted. No increased work of breathing, no retractions or nasal flaring. Abdomen/GI: Soft, non-tender, with normal bowel sounds. No distension or tympany. No guarding or rebound. No evidence of tenderness throughout. Skin: Warm, dry with normal turgor. Normal color with no rashes, no lesions, and no evidence of cellulitis. Vital Signs: 08:44 Pulse 111; Resp 17; Pulse Ox 95% ; Weight 90.72 kg; Height 5 ft. 11 in. ; Pain 9/10; ll1 08:46 BP 165 / 100; Pulse 106; Temp 98; Pulse Ox 95% ; am7 09:13 BP 150 / 97; Pulse 105; Resp 18; Pulse Ox 97% on R/A; Weight 90.72 kg; Height 5 ft. 10 ld1 in. ; Pain 0/10; 09:13 Body Mass Index 28.70 (90.72 kg, 177.8 cm) ld1 08:44 Pain Scale: Adult ll1 09:13 Pain Scale: Adult ld1 MDM: 08:52 Medical Screening Exam initiated ms3 10:20 Differential diagnosis: Hematuria. Data reviewed: vital signs, nurses notes, lab test ms3 result(s), and as a result, I will discharge patient. Management of patient was discussed with the following: Inspector [employer]: Dr Tejada- Patient can be discharged and follow up in his clinic today. Historians other than the Patient: Spouse/Significant Other: Patient's . Counseling: I had a detailed discussion with the patient and/or guardian regarding the historical points, exam findings, and any diagnostic results supporting the discharge/admit diagnosis, lab results, the need for outpatient follow up, to return to the emergency department if symptoms worsen or persist or if there are any questions or concerns that arise at home. Special discussion: I discussed with the patient/guardian in detail that at this point there is no indication for admission to the hospital. It is understood, however, that if the symptoms persist or worsen the patient needs to return immediately for re-evaluation. ED course: Discussed my conversation with Dr. Tejada with patient and his . They will be discharged from the emergency department and follow-up in his office. Patient is currently on Levaquin. All questions were answered. Return precautions discussed include fevers, chills, worsening symptoms, or any other concerns.. 01/06 08:52 Order name: CBC with Diff ms3 01/06 08:52 Order name: BMP; Complete Time: 09:30 ms3 01/06 08:52 Order name: Bladder Scanner; Complete Time: 09:13 ms3 Administered Medications: No medications were administered Disposition Summary: 01/06/25 09:38 Discharge Ordered Notes: Location: Home ms3 Condition: Stable ms3 Diagnosis - Gross hematuria ms3 Followup: ms3 - With: Ramu Tejada MD - When: Today - Reason: Discharge Instructions: - Discharge Summary Sheet ms3 - Hematuria, Adult ms3 Forms: - Medication Reconciliation Form ms3 - Antibiotic Education ms3 - Prescription Opioid Use ms3 - Patient Portal Instructions ms3 - Leadership Thank You Letter ms3 Signatures: Dispatcher [employer] EDMS Phi Wright RN RN ll1 Vipul Denny DO DO ms3 Sruthi Denny RN RN ld1
--- NOTE | 2025-01-06 09:39 | ER ---
[facility]'s Notes [facility] Name: Wanda [facility] Age: 69 yrs Sex: Male : 1955 Arrival Date: 01/06/2025 Time: 08:36 Bed 6 Private MD: Ramu Tejada Diagnosis: Gross hematuria Presentation: 01/06 08:44 Chief complaint: Patient states: Griffith catheter still draining bloody urine with clots ll1 in it. + nausea, dizzy. States Griffith was replaced last night and irrigated. Coronavirus screen: Client denies travel out of the [place] in the last 14 days. At this time, the client does not indicate any symptoms associated with coronavirus-19. Ebola Screen: Patient denies travel to an Ebola-affected area in the 21 days before illness onset. Initial Sepsis Screen: Does the patient meet any 2 criteria? No. Patient's initial sepsis screen is negative. Does the patient have a suspected source of infection? No. Patient's initial sepsis screen is negative. Risk Assessment: Do you want to hurt yourself or someone else? Patient reports no desire to harm self or others. Onset of symptoms was January 05, 2025. 08:44 Method Of Arrival: Wheelchair ll1 08:44 Acuity: RACHANA 3 ll1 Triage Assessment: 08:47 General: Appears uncomfortable, Behavior is calm, cooperative, appropriate for age. ll1 Pain: Complains of pain in pelvis Pain currently is 9 out of 10 on a pain scale. Quality of pain is described as pressure. : Reports pain pelvic bloody urine. Historical: - Allergies: 08:38 Naprosyn; ll1 - PMHx: 08:38 History of urinary tract infection; ll1 - Immunization history:: Adult Immunizations up to date. - Infectious Disease History:: Denies. - Social history:: Smoking status: Patient denies any tobacco usage or history of. Screenin:14 [facility] ED Fall Risk Assessment (Adult) History of falling in the last 3 months, ld1 including since admission No falls in past 3 months (0 pts) Confusion or Disorientation No (0 pts) Intoxicated or Sedated No (0 pts) Impaired Gait No (0 pts) Mobility Assist Device Used No (0 pt) Altered Elimination No (0 pt) Score/Fall Risk Level 0 - 2 = Low Risk Oriented to surroundings, Hourly rounding (assess needs \T\ fall precautionary measures) done. Abuse screen: Denies threats or abuse. Denies injuries from another. Nutritional screening: No deficits noted. Tuberculosis screening: No symptoms or risk factors identified. Assessment: 09:14 General: Appears in no apparent distress. comfortable, Behavior is calm, cooperative, ld1 appropriate for age. Pain: Denies pain. Neuro: Level of Consciousness is awake, alert, obeys commands, Oriented to person, place, time, situation. Cardiovascular: Capillary refill < 3 seconds Patient's skin is warm and dry. Respiratory: Airway is patent Respiratory effort is even, unlabored. GI: Abdomen is flat, non-distended. : Griffith in place Urine is sherry blood. EENT: No signs and/or symptoms were reported regarding the EENT system. Derm: No signs and/or symptoms reported regarding the dermatologic system. Musculoskeletal: No signs and/or symptoms reported regarding the musculoskeletal system. 09:44 Reassessment: Patient appears in no apparent distress at this time. No changes from ld1 previously documented assessment. Patient and/or family updated on plan of care and expected duration. Pain level reassessed. Patient is alert, oriented x 3, equal unlabored respirations, skin warm/dry/pink. Vital Signs: 08:44 Pulse 111; Resp 17; Pulse Ox 95% ; Weight 90.72 kg; Height 5 ft. 11 in. ; Pain 9/10; ll1 08:46 BP 165 / 100; Pulse 106; Temp 98; Pulse Ox 95% ; am7 09:13 BP 150 / 97; Pulse 105; Resp 18; Pulse Ox 97% on R/A; Weight 90.72 kg; Height 5 ft. 10 ld1 in. ; Pain 0/10; 09:13 Body Mass Index 28.70 (90.72 kg, 177.8 cm) ld1 08:44 Pain Scale: Adult ll1 09:13 Pain Scale: Adult ld1 ED Course: 08:37 Patient arrived in ED. as 08:38 Vipul Denny DO is Attending Physician. ms3 08:38 Arm band placed on Patient placed in an exam room, on a stretcher. ll1 08:40 Ramu Tjeada MD is Private Physician. as 08:47 Triage completed. ll1 08:55 Denny, Sruthi, RN is Primary Nurse. ld1 09:14 Patient has correct armband on for positive identification. Placed in gown. Bed in low ld1 position. Call light in reach. Side rails up X2. boulevard glassware replacer on. Pulse ox on. NIBP on. Door closed. Noise minimized. Warm blanket given. 09:14 No provider procedures requiring assistance completed. Inserted saline lock: 20 gauge ld1 in right antecubital area, using aseptic technique. Blood collected. Flushed with 10 mL NS. 09:38 Ramu Tejada MD is Referral Physician. ms3 09:45 IV discontinued, intact, bleeding controlled, No redness/swelling at site. ld1 Administered Medications: No medications were administered Medication: 09:14 VIS not applicable for this client. ld1 Outcome: :38 Discharge ordered by . ms3 09:44 Discharged to home ambulatory, ld1 09:44 Condition: stable 09:44 Discharge instructions given to patient, Instructed on discharge instructions, follow up and referral plans. Demonstrated understanding of instructions, follow-up care, 09:45 Patient left the ED. ld1 Signatures: Mirella Campos Lynsay, RN RN ll1 Vipul Denny DO DO ms3 Sruthi Denny, RN RN ld1 Maryanne Serrano am7
[2025-01-06 09:54] VITALS: BP 150/97; TEMP 98; O2SAT 97
[2025-01-06 10:23] LABS: Blood Morphology Comment NOT SEEN (NOT SEEN); Differential Total Cells Count 100; Lymphocytes 9 % (15-42); Monocytes 8 % (0-10); Platelet Estimate ADEQ; Segmented Neutrophils 83 % (40-80)
== END 2025-01-06 09:45 | disposition home or self-care (01) ==
LOC: ER 08:36
DX: R31.0 Gross hematuria (principal); R10.2 Pelvic and perineal pain; Z87.440 Personal history of urinary (tract) infections
CPT/HCPCS: 36415; 80048; 85025; 99284

== ENCOUNTER → 2025-01-26 | Day surgery (SDC) | payer OTHER ==
[2025-01-19 15:04] LABS: Specific Gravity 1.014 (1.005-1.030); Sqamous Epithelial <5 /HPF (None Seen); Urine Bacteria <20 /HPF (<20); Urine Bilirubin NEGATIVE (Negative); Urine Blood 3+ (OVER) (Negative); Urine Clarity Extremely Turbid (Clear); Urine Color Light-Orange (Yellow); Urine Crystals Unidentified Few /HPF (None Seen); Urine Culture Reflex Order REFLEXED; Urine Glucose NEGATIVE (Negative); Urine Ketones NEGATIVE (Negative); Urine Microscopic Reflex YN ORDER UMIC; Urine Mucus 2+ /HPF (None Seen); Urine Nitrite NEGATIVE (Negative); Urine Protein 1+ (Negative); Urine RBC >50 /HPF (None Seen); Urine Urobilinogen Normal (Normal); Urine WBC >50 /HPF (<5)
[~2025-01-26] MED LIST: FENTANYL CITR 100 MCG/2 ML ONE; LIDOCAINE 1% MPF 5 ML VIAL ONE; MIDAZOLAM HCL 2 MG/2 ML INJ ONE; Mastisol Adhesive Liq ONE; NA CHLORIDE 0.9% 100 ML ONE; ONDANSETRON 4 MG/2 ML VIAL ONE; Ringers Lactate 1,000 ML IV ONE; propofoL 200 MG/20 ML VIAL IV ONE
[2025-01-26] MEDS: Gentamicin Inj 160 MG in NA CHLORIDE 0.9% 100 ML IVPB ONE (15:51)
[2025-01-26] MEDS: AMPICILLIN SODIUM 2 GM/VIAL VIAL ONE (15:59)
--- NOTE | 2025-01-26 17:05 | RAD REPORT ---
EXAM: Fluoroscopy use, Urethrocystogrphy Retrograde HISTORY: STENT COMPARISON: None FINDINGS: Multiple images were sent to PACS, during a fluoroscopically guided procedure. No radiologi st was involved in protocoling or performance of the study, and no radiologist was present for the duration of the procedure. No interpretation of the saved images will be provided. Total fluoroscopy time: 0:37. IMPRESSION: Documentation of fluoroscopy use as above. Transcribed Date/Time: 01/26/2025 5:05 PM
--- NOTE | 2025-01-26 17:23 | P.OP ---
Date of Service: 01/26/25 Preoperative diagnoses: Abnormal voided cytology Atypical left ureteral cytology s/p cystoscopy with bladder biopsies, fulguration, bilateral ureteral stents placed h/o postoperative urinary retention Postoperative diagnoses: Abnormal voided cytology Atypical left ureteral cytology s/p cystoscopy with bladder biopsies, fulguration, bilateral ureteral stents placed Meatal stenosis Right renal pelvic mucosal change/mucosal lesion h/o postoperative urinary retention Perineal pendulous urethral stricture disease Principal procedures: Meatal dilation using sounds Cystoscopy Left retrograde pyelography Left ureteroscopy with pyeloscopy Left 5 Botswanan externalized ureteral stent placement Right retrograde pyelography Right ureteroscopy with pyeloscopy Right pyeloscopic/ureteroscopic biopsy using Openc[place]ha ureteroscopic biopsy forceps Right 6 B[place]an by 26 cm double-J ureteral stent placement Complex 18 B[place]an coud urethral Griffith catheter placement Indication for procedure: 69-year-old gentleman who presented to the urology clinic with gross hematuria and evidence of prostatic urethral obstruction. No bladder lesions were id entified and noncontrast upper tract imaging did not reveal any renal masses. Cytologic evaluation of his voided urine done, since no IV contrast was given for the CT, revealed atypical suspicious cytology. As a result, he underwent operative cystoscopy with bladder biopsies and fulguration and bilateral retrograde pyelography studies with an attempted ureteroscopy that failed due to ureteral stenosis, but atypical ureteral cytology identified on the left. As a result, bilateral stents were placed, and he returns today for definitive evaluation. Of note, he had pre-existing meatal stenosis requiring dilation on a prior procedure and postoperative urinary retention requiring emergency department catheter placement. We discussed and agreed that he would go home with a catheter tonight and remove it tomorrow morning at 7 AM sharp. Procedure note: The patient was consented in the preoperative holding area before being transferred to the operative suite where general anesthesia was induced. He was given ampicillin 2 g and gentamicin 160 mg IV antimicrobial prophylaxis, and pneumoboots were provided for DVT prophylaxis. He was placed in the lithotomy position, padded and secured to the table appropriately. His genitalia was prepped with Hibiclens and he was draped in standard fashion. The case has begun using a 22 B[place]an rigid cystoscope to attempt to enter the urethra, but the meatus was stenotic. As a result, I had to utilize sounds to dilate the meatus from 18 [place] to 24 [place], which I did with ease. I was then able to navigate the cystoscope via the urethra and passed an area of stricture disease within the perineal pendulous urethra, by carefully navigating the rigid cystoscope in order to dilate that narrowing with passage. An additional area of filmy narrowing was observed within the membranous urethra, which I was also able to dilate using the tip of the cystoscope before ultimately navigating through the prostatic urethra and into the bladder. The prior heart resected median lobe of the prostatic urethra was observed with residual lateral lobar hypertrophy and some fibrinous change owing to the prior resection and fulguration. Upon entry into the bladder, areas of biopsy site fibrinous mucosal change was again observed. The stents were noted to emanate from the ureteral orifices bilaterally. As a result, I started by grasping the left ureteral stent tip using an alligator grasper and delivering the tip to the meatus leaving the proximal coil within the mid ureter as evidenced fluoroscopically. I then passed a sensor wire up the stent and was able to navigated into the collecting system putatively as observed fluoroscopically. Over the sensor wire, I navigated a 5 [place]an ureteral access catheter into the mid proximal ureter. Left retrograde pyelography: Using a 70: 30 mixture of Omnipaque and saline, I injected the contrast mixture via the 5 B[place]wanan ureteral access catheter and it did propagate up the proximal ureter into the renal pelvis and calyces which were without pelvocaliectasis. I then passed the sensor wire via the 5 [place]wanan ureteral access catheter coiling it within the upper pole of the kidney before switching the 5 [place]an ureteral access catheter over the wire for a dual-lumen catheter placed into the mid ureter. I similarly injected contrast via the second lumen of the dual-lumen catheter to confirm appropriate intraluminal location before passing a Bentson guidewire also into the collecting system alongside the sensor safety wire. Left ureteroscopy with pyeloscopy: I then remove the dual-lumen catheter and passed the flexible ureteroscope over the Bentson guidewire all the way up the distal into the mid and proximal ureter before entering the renal pelvis. I started by surveying the upper pole calyces before navigating into the midpole and then lower pole calyces both anterior and posterior until every calyx had been seen as evidenced by fluoroscopic guidance. No papillary mucosal lesions were noted throughout the entirety of the renal pelvis and calyces on the left. There was some mild hemorrhagic mucosal change likely owing to the stent and/or the manipulation associated with the wires. As a result, I surveyed the renal pelvis on the way out and down the proximal into the mid and distal ureter. No additional mucosal lesions were noted on the way out so I remove the ureteroscope. Over the sensor wire still remnant in the collecting system on the left, I passed a 5 [place]wanan ureteral access catheter all the way into the upper pole calyx and left there and removing the sensor wire. I then turned my attention to the patient's right side. I replaced the cystoscope via his urethra into his bladder alongside the 5 [place]an ureteral access catheter in the left ureter. I was able to identify the right ureteral stent and grasped the tip of the coil of the stent and deliver it to the meatus leaving the proximal coil within the mid ureter. Again, I advanced the sensor wire via the stent ultimately coiling it within the collecting system on the right. Right retrograde pyelography: I removed the stent and passed a dual-lumen catheter over the sensor wire into the mid proximal ureter and again injected contrast via the second lumen of the dual-lumen catheter to confirm the appropriate intraluminal location of the dual-lumen catheter. Once confirmed, I then passed a Bentson guidewire into the collecting system on the right alongside the sensor safety wire and remove the dual-lumen catheter. Right ureteroscopy with pyeloscopy and pyeloscopic biopsy of sessile mucosal change: I then advanced the flexible ureteroscope over the Bentson guidewire all the way into the collecting system on the right. I surveyed through each of the calyces of the kidney using fluoroscopic guidance to ensure all of the calyces had been entered and visualized. No papillary mucosal lesions, foreign bodies, or stones were noted throughout the renal calyces on the right. Within the renal pelvis nearest the UPJ on the right, anterolaterally there was an area of slight sessile mucosal thickening of uncertain significance. It was likely this was simply associated with the presence of the indwelling ureteral stent, but to be certain, I recommended proceeding with ureteroscopic biopsy. As a result, I utilized anha biopsy forceps to take 3 samples of this mucosal thickening, and this was sent for pathologic analysis in formalin. No significant bleeding was noted; so I then surveyed further down into the proximal before entering the mid and distal ureter on the way out. No other concerning papillary mucosal lesions were noted along the remainder of the collecting system or the ureter on the right. As a result, I then removed the ureteroscope and then used fluoroscopic guidance to pass a 6 [place] by 26 cm double-J ureteral stent over the sensor safety wire into the collecting system on the right. Once the tip of the pusher was in the mid aspect of the pubis, the pusher was removed leaving a coil in the renal pelvis on the right and 1 cystoscopically formed in the bladder. I had left the stent on a tether which was eventually secured to the head of the penis using Mastisol and Steri-Strips. I placed an 18 [place] coud Griffith catheter via his urethra into his bladder after initially attempting an 18 [place] straight catheter that would not pass successfully. The 5 [place]an ureteral access stent placed on the left side was then placed using a 14-gauge Angiocath via puncture into the hub of the urethral Griffith catheter. Mastisol and Steri-Strips were us ed to secure the 5 [place]an ureteral access catheter along multiple points to the urethral Griffith catheter. I then irrigated his bladder to ensure proper positioning of the catheter and no clots. The catheter was then connected to the leg bag and he was taken out of the lithotomy position. He was then awakened from general anesthesia before being transferred to a stretcher. He was then transferred to the recovery room in good condition. Complications: None Discharge disposition: He has an 18 [place] coud urethral Griffith catheter which he may remove tomorrow morning at home at 7 AM sharp. This catheter has the left-sided 5 [place]wanan ureteral access catheter secured to it via Steri-Strips. As such, the 5 [place]an ureteral access catheter may be removed in concert with removal of the urethral Griffith catheter. It is possible the tethered right ureteral stent may become dislodged with removal of the urethral Griffith catheter. If this occurs, that is perfectly reasonable and the stent may be removed. If not, we will plan to remove the right ureteral stent subsequently in my office. Subsequent follow-up to discuss the results of the pathology of today's biopsy, which I fully expect will be benign, should be established somewhere within the next 1 to 2 weeks.
[2025-01-26] MEDS: PHENAZOPYRIDINE 100MG TAB PO ONE (18:10)
[2025-01-26] MEDS: HYDROCODONE/APAP 5/325 MG TAB PO PRN (18:12)
[2025-01-26 18:47] VITALS: BP 145/74; TEMP 97.7; O2SAT 98
== END | disposition home or self-care (01) ==
LOC: PRE 12:49
PROVIDERS: ATTEND Urology
PROC: 0T788DZ Dilation of Bilateral Ureters with Intraluminal Device, Via Natural or Artificial Opening Endoscopic (ICD-10-PCS; 2025-01-26)
PROC: 0TB68ZX Excision of Right Ureter, Via Natural or Artificial Opening Endoscopic, Diagnostic (ICD-10-PCS; principal; 2025-01-26 14:30)
DX: C65.1 Malignant neoplasm of right renal pelvis (principal); N02.9 Recurrent and persistent hematuria with unspecified morphologic changes; R82.89 Other abnormal findings on cytological and histological examination of urine; N32.89 Other specified disorders of bladder; N13.8 Other obstructive and reflux uropathy
CPT/HCPCS: 52354; 52332; 87088; 81001; 87086; 88305; 74450; 51610; J2704; J2003; J1580; J2250; J3010 ×2; J2405; J0290; J7120

== ENCOUNTER 2025-06-01 05:55 | Day surgery (SDC) | payer OTHER ==
[2025-06-01] MEDS: OXYBUTYNIN ER 5 MG TAB PO ONE (06:31)
[2025-06-01 06:35] LABS: Sqamous Epithelial <5 /HPF (None Seen); Urine Culture Reflex Order REFLEXED; Urine Microscopic Reflex YN ORDER UMIC
[2025-06-01] MEDS: DIAZEPAM 5 MG TABLET ONE (06:44)
[2025-06-01 06:50] VITALS: BP 153/90; TEMP 97.3; O2SAT 98; BMI 27.4
[2025-06-01] MEDS: LIDOCAINE JELLY 2% 5 ML SYRINGE TOP ONE (07:18)
[2025-06-01] MEDS: NITROFURAN MACRO 100 MG CAP PO ONE (07:50)
[2025-06-01] MEDS ORDERED: Gemcitabine 52.6 ML IV ONE (09:00)
--- NOTE | 2025-06-01 10:56 | P.PN ---
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 He underwent an induction course of intrarenal gemcitabine 2 g and 50 cc NS administered via a nephrostomy tube with subsequent operative evaluation including biopsies and cytology all negative for residual malignancy. Following those ureteroscopic investigations, bilateral stents were left in place. Since he was not terribly bothered by the stents, he elected to proceed with continued monthly maintenance gemcitabine administered intravesically designed to reflux up the stents to treat the kidneys and urothelium of the upper tracts. Procedure note: The patient was consented in the preoperative holding area where he also was placed supine on a stretcher. His genitalia was prepped with Betadine and draped in standard fashion. Lidocaine Uro-Jet was applied intraurethrally for local anesthesia. An 18 English urethral Griffith catheter was placed via his urethra into his bladder with ease. 10 cc of sterile water was placed in the balloon. Towels were placed around the genitalia and his bladder was decompressed into an attached floor bag. Once his bladder was decompressed, I then placed fluid impermeable drapes over his body and he was given a fascial. The phallus and catheter were brought up through a hole in the drapery and I retrograde instilled 2 g gemcitabine in 50 cc NS into his bladder with ease. A Abi clamp was applied to the catheter to keep the fluid intravesical, and a leg bag was associated for ease of subsequent contained decompression. He tolerated the chemotherapy instillation well and without any significant urinary urgency. He was then placed in the slight Trendelenburg position and allowed to dwell with the chemotherapy intravesical, refluxing up the stents into the renal pelvis bilaterally, targeting 90 minutes of therapy. He was able to tolerate it for approximately 75 minutes. The chemotherapy was then decompressed into the attached leg bag, and the catheter was removed. He was then discharged from the clinic in good condition. Complications: None apparent Discharge disposition: Follow-up in 1 month approximately for next intravesical gemcitabine targeting 2 years of maintenance therapy -till April 2027.
== END 2025-06-01 09:28 | disposition home or self-care (01) ==
LOC: DS 05:55
PROVIDERS: ATTEND Urology
PROC: 3E0K705 Introduction of Other Antineoplastic into Genitourinary Tract, Via Natural or Artificial Opening (ICD-10-PCS; principal; 2025-06-01)
DX: C68.9 Malignant neoplasm of urinary organ, unspecified (principal); C64.1 Malignant neoplasm of right kidney, except renal pelvis; R89.6 Abnormal cytological findings in specimens from other organs, systems and tissues
CPT/HCPCS: 87088; 81001; 87086; 51720; J9201

== ENCOUNTER 2025-07-20 06:59 | Day surgery (SDC) | payer OTHER ==
[2025-07-20] MEDS ORDERED: Gemcitabine 52.6 ML IV ONE (07:00)
[2025-07-20 07:29] LABS: Sqamous Epithelial <5 /HPF (None Seen); Urine Crystals Unidentified Few /HPF (None Seen); Urine Culture Reflex Order REFLEXED; Urine Microscopic Reflex YN ORDER UMIC; Urine WBC Clump Rare /HPF (None Seen); Urine Yeast (Budding) Occasional /HPF (None Seen)
[2025-07-20] MEDS: NITROFURAN MACRO 100 MG CAP PO ONE (07:46)
[2025-07-20] MEDS: OXYBUTYNIN ER 5 MG TAB PO ONE (07:46)
[2025-07-20] MEDS: DIAZEPAM 5 MG TABLET ONE (08:10)
[2025-07-20] MEDS ORDERED: LIDOCAINE JELLY 2% 5 ML SYRINGE TOP ONE (08:18)
[2025-07-20 08:25] VITALS: BP 148/83; TEMP 97.5; O2SAT 98; BMI 27.4
--- NOTE | 2025-07-20 14:48 | P.PN ---
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 He underwent an induction course of intrarenal gemcitabine 2 g and 50 cc NS administered via a nephrostomy tube with subsequent operative evaluation including biopsies and cytology all negative for residual malignancy. Following those ureteroscopic investigations, bilateral stents were left in place. Since he was not terribly bothered by the stents, he elected to proceed with continued monthly maintenance gemcitabine administered intravesically designed to reflux up the stents to treat the kidneys and urothelium of the upper tracts. Procedure note: The patient was consented in the preoperative holding area where he also was placed supine on a stretcher. His genitalia was prepped with Betadine and draped in standard fashion. Lidocaine Uro-Jet was applied intraurethrally for local anesthesia. An 18 Bulgarian urethral Griffith catheter was placed via his urethra into his bladder with ease. 10 cc of sterile water was placed in the balloon. Towels were placed around the genitalia and his bladder was decompressed into an attached floor bag. Once his bladder was decompressed, I then placed fluid impermeable drapes over his body and he was given a fascial. The phallus and catheter were brought up through a hole in the drapery and I retrograde instilled 2 g gemcitabine in 50 cc NS into his bladder with ease. A Abi clamp was applied to the catheter to keep the fluid intravesical, and a leg bag was associated for ease of subsequent contained decompression. He tolerated the chemotherapy instillation well and without any significant urinary urgency. He was then placed in the slight Trendelenburg position and allowed to dwell with the chemotherapy intravesical, refluxing up the stents into the renal pelvis bilaterally, targeting 90 minutes of therapy. The chemotherapy was then decompressed into the attached leg bag, and the catheter was removed. He was then discharged from the clinic in good condition. Complications: None apparent Discharge disposition: Follow-up in 1 month approximately for next intravesical gemcitabine targeting 2 years of maintenance therapy -till April 2027. Follow-up for outpatient cystoscopy around 08/21/2025, and we may remove the left ureteral stent at that time. CT urography/CTU to be ordered and completed within the week of scheduled cystoscopy to rule out upper tract filling defect or evidence of urothelial mass and rule out metastatic disease.
== END 2025-07-20 10:04 | disposition home or self-care (01) ==
LOC: DS 06:59
PROVIDERS: ATTEND Urology
PROC: 3E0K705 Introduction of Other Antineoplastic into Genitourinary Tract, Via Natural or Artificial Opening (ICD-10-PCS; principal; 2025-07-20)
DX: C68.9 Malignant neoplasm of urinary organ, unspecified (principal); C64.1 Malignant neoplasm of right kidney, except renal pelvis; Z51.11 Encounter for antineoplastic chemotherapy
CPT/HCPCS: 51720; 81001; 87086; 87088; J9201